=== PATIENT | female | born 1950 | race Caucasian/White ===

== ENCOUNTER 2019-05-23 10:49 | Observation (INO) ==
[2019-05-23] MEDS ORDERED: ACETAMINOPHEN 325 MG TAB PO STA (11:28)
[2019-05-23] MEDS ORDERED: MoRPHine SULFATE 4 MG/ML 1 ML CARP\\VIAL IV STA (11:28)
[2019-05-23] MEDS ORDERED: SODIUM CHLORIDE 0.9% 500 ML IV SCH (11:30)
[2019-05-23 12:15] LABS: Hematocrit (blood only) 31.6 % (37-47); Hemoglobin 10.3 g/dL (12.0-16.0); Mean Corpuscular Hemoglobin 26.7 pg (25-34); Mean Corpuscular Hgb Conc 32.6 g/dL (32-36); Mean Corpuscular Volume 81.9 fL (80-100); Mean Platelet Volume 8.7 fL (7.4-10.4); Platelet Count 423 K/uL (130-400); RDW Coefficient of Variation 16.2 % (11.5-14.5); RDW Standard Deviation 48.6 fL (36.4-46.3); Red Blood Count 3.86 M/uL (4.2-5.4); White Blood Count 25.37 K/uL (4.8-10.8)
[2019-05-23 12:31] LABS: Albumin Level 2.8 gm/dl (3.4-5.0); BUN Creatinine Ratio 18.8 (10-20); Calcium 9.3 mg/dl (8.5-10.1); Creatinine Clr Calc Pharmacy 23.5 ml/min; Est GFR (African American) 23.7; Est GFR (Non-African American) 20.4; Magnesium 2.5 mg/dl (1.8-2.4); Potassium 3.1 mmol/L (3.5-5.1)
--- NOTE | 2019-05-23 12:36 | XRay Report ---
XR hips XANDER 1v w pelvis CLINICAL HISTORY: b/l hip pain, worst on R side COMPARISON: None. DISCUSSION: Nondisplaced cortical fracture right symphysis pubis. Mild degenerative change of the hip s as well as sacroiliac joints. IMPRESSION: Mild degenerative change of the hips as well as sacroiliac joints. Nondisplaced cortical fracture medial right symphysis pubis. ACT 112: Negative or not required by law. The above report was generated using voice recognition software. It may contain grammatical, syntax or spelling errors. Electronically signed by: Javier Chambers M.D. 05/23/2019 12:35 PM
[2019-05-23 12:41] LABS: Albumin Globulin Ratio 0.5 (0.9-2); Bilirubin,Total 0.4 mg/dl (0.2-1); Globulin 5.4 gm/dl (2.5-4.0); Thyroid Stimulating Hormone 0.758 uIu/ml (0.300-4.500); Total Protein 8.2 gm/dl (6.4-8.2)
[2019-05-23] MEDS ORDERED: SODIUM CHLORIDE 0.9% 1000ML 1,000 ML IV ONE (12:53)
[2019-05-23 13:02] LABS: Basophils # (auto) 0.05 K/uL (0-0.2); Basophils % (auto) 0.2 %; Eosinophils # (auto) 0.08 K/uL (0-0.5); Eosinophils % (auto) 0.3 %; Immature Granulocytes # (auto) 0.14 K/uL (0.00-0.02); Immature Granulocytes % (auto) 0.6 %; Lymphocytes # (auto) 7.93 K/uL (1.2-3.4); Lymphocytes % (auto) 31.3 %; Monocytes % (auto) 7.9 %; Neutrophils # (auto) 15.17 K/uL (1.4-6.5); Neutrophils % (auto) 59.7 %; Smudge Cells Present
--- NOTE | 2019-05-23 14:09 | CT Scan Report ---
CT abd pelvis wo con CT DOSE: 1257.30 mGy.cm HISTORY: Pain. Fever. elevated WBC TECHNIQUE: Multiaxial CT images of the abdomen and pelvis were performed without contrast. A dose lo wering technique was utilized adhering to the principles of ALARA. COMPARISON STUDY: None. FINDINGS: Bibasilar atelectasis. Liver spleen and pancreas are unremarkable. 2.5 cm left adrenal lipi d poor adenoma. Kidneys are considered negative for hydronephrosis. Atherosclerotic change abdominal aorta with no evidence for aneurysm. Nonobstructive bowel pattern. Moderate wall thickening with trace amount of pericolonic infiltrative change of the proximal to mid sigmoid. No evidence for abscess or collection. IMPRESSION: 1. Wall thickening and inflammatory change of the proximal to mid sigmoid colon suggesting nonspecifi c colitis. 2. No evidence for abscess collection or obstruction. 3. 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 4. Bibasilar atelectasis. ACT 112: Negative or not required by law. The above report was generated using voice recognition software. It may contain grammatical, syntax or spelling errors. Electronically signed by: Javier Chambers M.D. 05/23/2019 2:08 PM
[2019-05-23 14:51] LABS: Appearance Urine Cloudy (Clear); Bacteria Urine Automated Negative (Negative); Bilirubin Urine Negative (Negative); Blood Urine Negative (Negative); Color Urine Dark Yellow; Epithelial Cell Urine Auto >30 /lpf (0-5); Glucose Urine UA Negative (Negative); Ketones Urine Negative (Negative); Leukocyte Esterase Urine 1+ (Negative); Nitrite Urine Negative (Negative); Protein Urine Negative (Negative); Specific Gravity Urine 1.019 (1.000-1.030); Urobilinogen Urine Negative (Negative)
[2019-05-23 15:07] LABS: RBC Urine Automated 0-4 /hpf (0-4)
[2019-05-23 15:08] LABS: Amorphous Sediment Urine Present (None Prsent); Mucus Urine Present (None Prsent)
--- NOTE | 2019-05-23 15:30 | History & Physical Report ---
Date of Service May 23, 2019 Assessment & Plan (1) Ambulatory dysfunction: 68-year-old female presenting with ambulatory dysfunction, groin pain and weakness. Etiology unclear, patient with a small nondisplaced pubic fracture found on x-ray today which could be contributing to her discomfort. Additionally, patient with multiple electrolyte abnormalities and evidence of acute dehydration which could contribute to overall weakness, possible infection. Admit to medical floor PT/OT evaluation Pain control with Tylenol and tramadol 50 mg p.o. every 4 hours as needed Present on Admission?: Yes (2) GERD (gastroesophageal reflux disease): Chronic. Stable -Continue Nexium Present on Admission?: Yes (3) Hypertension: Blood pressure low, patient appears clinically dry with laboratory evidence of acute dehydration -Hold HCTZ fro now -Continue to monitor BP Present on Admission?: Yes (4) Leukocytosis: WBC=25.37, neutrophils/bands as well as elevated lymphocytes. ?CLL with overlying infection/inflammation -Follow cultures -Follow CBC -Peripheral smear Present on Admission?: Yes (5) CLL (chronic lymphocytic leukemia): Patient reports history of CLL, currently being followed by her PCP, Dr. Tobar. Reports her baseline WBC count is typically 10-16. WBC is elevated today to 25.37, see above. Differential shows neutrophil predominance with some increased immature cells as well as lymphocytes. Smudge cells present as well, expected in CLL.?Infectious/inflammatory response as well as CLL Peripheral smear requested to assess for presence of blasts Records from PCP requested Repeat CBC in a.m. (6) Depression: Chronic. Stable. Continue sertraline 50 mg p.o. daily FENnormal saline at 125 mL/h x 2 L, potassium repletion with 60 mEq p.o. x1 dose, check phosphorus once and replete if needed, regular diet as tolerated Prophylaxisheparin 5000 units subcu 3 times daily Codefull per discussion with patient, family at bedside Dispositionadmission to medical floor Present on Admission?: Yes History of Present Illness Chief Complaint: Ambulatory dysfunction Primary Care Provider: Tyson benson DO Marilyn Gutierrez is a pleasant 5-year-old female with history of CLL and hypertension presenting from home with ambulatory dysfunction. She reports that a couple of weeks ago she was lifting her dog onto the bed and she feels that she may have pulled a muscle in her groin. Since then she has been ambulating with a walker. On 05/19/2019 her pain became more severe. Patient was unable to go to work due to pain and difficulty with ambulation. She required 2 people to get her up off of a chair. She was seen in the ER at [facility] and was given pain medication and Flexeril which she has been taken with minimal improvement in symptoms. Prior to this event, patient was working at a [employer] in [place] and was on her feet 8-10 hours per day without difficulty. She denies fever/chills/chest pain/palpitations/shortness of breath/abdominal pain/nausea/vomiting/diarrhea/constipation. No additional complaints at this time ER course: Tylenol, morphine, normal saline Allergies Allergy/AdvReac Type Severity Reaction Status Date / Time naproxen Allergy Intermediate RASH - Verified 05/23/19 11:43 TOLERATES MOBIC Sulfa (Sulfonamide Allergy Intermediate RASH Verified 05/23/19 11:43 Antibiotics) Home Medications Home Medications Medication Instructions Recorded Confirmed Type enalapril maleate 20 mg PO DAILY 05/23/19 05/23/19 History esomeprazole magnesium 20 mg PO DAILY 05/23/19 05/23/19 History hydrochlorothiazide 25 mg PO DAILY 05/23/19 05/23/19 History sertraline 50 mg PO DAILY 05/23/19 05/23/19 History Past Med/Surg History Medical History (Updated 05/23/19 @ 19:46 by Micaela Mcdonald DO) CLL (chronic lymphocytic leukemia) Depression GERD (gastroesophageal reflux disease) Hypertension Surgical History (Updated 05/23/19 @ 18:50 by Micaela Mcdonald DO) History of cholecystectomy History of hysterectomy History of right knee joint replacement Family History (Updated 05/23/19 @ 18:50 by Micaela Mcdonald DO) Other Cancer Diabetes Heart disease Social History Preferred Language: [place] Communication Ability: Effective Beliefs That Will Affect Care: None Current Living Situation: Spouse Other Information That Helps Us Care for You: No Feels Safe at Home: Yes Safety Concerns: Feels Safe At This Time Smoking Status: Never smoker Hx Alcohol Use: No Hx Substance Use: No Review of Systems Review of Systems: All systems reviewed & are unremarkable except as noted in HPI & below Physical Exam Physical Exam: General: patient resting comfortably, NAD, non-toxic in appearance, AA&O x 4 Skin: warm, dry, intact, no rashes or lesions HEENT: NC/AT, PERRL, EOMI, anicteric sclera, conjunctiva without injection, external ear normal to inspection and nontender, nares patent, dry mucus membranes, dentition intact, no oropharyngeal lesions, neck supple, trachea midline, no LAD, no thyromegaly, no JVD Heart: +S1/S2, regular, no m/r/g Lungs: equal air entry bilaterally, no rales/rhonchi/wheezes Abd: +BS, soft, NT/ND, no masses/organomegaly/ascites Ext: warm, 2+ pulses in UE/LE bilaterally, no clubbing/cyanosis or edema, tenderness with palpation of left knee, no swelling/erythema Neuro: nonfocal, patient AA&O x 4, speech intact, no facial droop, moving all extremities on command with equal strength 5/5 Results & Data Vital Signs (Past 12 Hours) Vital Signs Temp Pulse Pulse Resp BP BP Pulse Ox 05/23/19 14:31 78 14 106/56 L 96 05/23/19 13:30 78 21 90/51 L 94 05/23/19 13:00 79 18 95/50 L 95 05/23/19 12:37 80 14 98/48 L 95 05/23/19 11:35 95 05/23/19 11:16 85 19 95/51 L 96 05/23/19 11:02 37 C 85 20 110/64 99 Laboratory Results Lab Results 05/23/19 05/23/19 05/23/19 Range/Units 12:07 12:07 13:29 WBC 25.37 H (4.8-10.8) K/uL RBC 3.86 L (4.2-5.4) M/uL Hgb 10.3 L (12.0-16.0) g/dL Hct 31.6 L (37-47) % MCV 81.9 (80-100) fL MCH 26.7 (25-34) pg MCHC 32.6 (32-36) g/dL RDW Std Deviation 48.6 H (36.4-46.3) fL RDW Coeff of Payam 16.2 H (11.5-14.5) % Plt Count 423 H (130-400) K/uL MPV 8.7 (7.4-10.4) fL Immature Gran % (Auto) 0.6 % Neut % (Auto) 59.7 % Lymph % (Auto) 31.3 % [place] % (Auto) 7.9 % Eos % (Auto) 0.3 % Baso % (Auto) 0.2 % Immature Gran # (Auto) 0.14 H (0.00-0.02) K/uL Neut # (Auto) 15.17 H (1.4-6.5) K/uL Lymph # (Auto) 7.93 H (1.2-3.4) K/uL [place] # (Auto) 2.00 H (0.11-0.59) K/uL Eos # (Auto) 0.08 (0-0.5) K/uL Baso # (Auto) 0.05 (0-0.2) K/uL Absolute Nucleated RBC 0.00 (0-0) K/uL Nucleated RBC % (auto) 0.0 % Smudge Cells Present Blood Smear Review Cancelled Sodium 131 L (136-145) mmol/L Potassium 3.1 L (3.5-5.1) mmol/L Chloride 97 L (98-107) mmol/L Carbon Dioxide 22 (21-32) mmol/L Anion Gap 12.0 H (3-11) BUN 44 H (7-18) mg/dl Creatinine 2.34 H (0.6-1.2) mg/dl Est Cr Clr Drug Dosing 23.5 ml/min Est GFR ( Amer) 23.7 Est GFR (Non-Af Amer) 20.4 BUN/Creatinine Ratio 18.8 (10-20) Glucose 112 H (70-99) mg/dl Lactate 1.0 (0.4-2.0) mmol/L Calcium 9.3 (8.5-10.1) mg/dl Magnesium 2.5 H (1.8-2.4) mg/dl Total Bilirubin 0.4 (0.2-1) mg/dl AST 26 (15-37) U/L ALT 32 (12-78) U/L Alkaline Phosphatase 124 H (45-117) U/L Total Protein 8.2 (6.4-8.2) gm/dl Albumin 2.8 L (3.4-5.0) gm/dl Globulin 5.4 H (2.5-4.0) gm/dl Albumin/Globulin Ratio 0.5 L (0.9-2) TSH 0.758 (0.300-4.500) uIu/ml Urine Color Urine Appearance (Clear) Urine pH (4.5-7.5) Ur Specific [place] (1.000-1.030) Urine Protein (Negative) Urine Glucose (UA) (Negative) Urine Ketones (Negative) Urine Blood (Negative) Urine Nitrite (Negative) Urine Bilirubin (Negative) Urine Urobilinogen (Negative) Ur Leukocyte Esterase (Negative) Urine WBC (Auto) (0-5) /hpf Urine RBC (Auto) (0-4) /hpf U Hyaline Cast (Auto) (0-5) /lpf U Epithel Cells (Auto) (0-5) /lpf Urine Bacteria (Auto) (Negative) Ur Renal Epithelial Cell (0-5) /lpf Amorphous Sediment (None Prsent) Urine Mucus (None Prsent) Urine Yeast 05/23/19 Range/Units 14:08 WBC (4.8-10.8) K/uL RBC (4.2-5.4) M/uL Hgb (12.0-16.0) g/dL Hct (37-47) % MCV (80-100) fL MCH (25-34) pg MCHC (32-36) g/dL RDW Std Deviation (36.4-46.3) fL RDW Coeff of Payam (11.5-14.5) % Plt Count (130-400) K/uL MPV (7.4-10.4) fL Immature Gran % (Auto) % Neut % (Auto) % Lymph % (Auto) % [place] % (Auto) % Eos % (Auto) % Baso % (Auto) % Immature Gran # (Auto) (0.00-0.02) K/uL Neut # (Auto) (1.4-6.5) K/uL Lymph # (Auto) (1.2-3.4) K/uL [place] # (Auto) (0.11-0.59) K/uL Eos # (Auto) (0-0.5) K/uL Baso # (Auto) (0-0.2) K/uL Absolute Nucleated RBC (0-0) K/uL Nucleated RBC % (auto) % Smudge Cells Blood Smear Review Sodium (136-145) mmol/L Potassium (3.5-5.1) mmol/L Chloride (98-107) mmol/L Carbon Dioxide (21-32) mmol/L Anion Gap (3-11) BUN (7-18) mg/dl Creatinine (0.6-1.2) mg/dl Est Cr Clr Drug Dosing ml/min Est GFR ( Amer) Est GFR (Non-Af Amer) BUN/Creatinine Ratio (10-20) Glucose (70-99) mg/dl Lactate (0.4-2.0) mmol/L Calcium (8.5-10.1) mg/dl Magnesium (1.8-2.4) mg/dl Total Bilirubin (0.2-1) mg/dl AST (15-37) U/L ALT (12-78) U/L Alkaline Phosphatase (45-117) U/L Total Protein (6.4-8.2) gm/dl Albumin (3.4-5.0) gm/dl Globulin (2.5-4.0) gm/dl Albumin/Globulin Ratio (0.9-2) TSH (0.300-4.500) uIu/ml Urine Color Dark Yellow Urine Appearance Cloudy A (Clear) Urine pH 5.0 (4.5-7.5) Ur Specific [place] 1.019 (1.000-1.030) Urine Protein Negative (Negative) Urine Glucose (UA) Negative (Negative) Urine Ketones Negative (Negative) Urine Blood Negative (Negative) Urine Nitrite Negative (Negative) Urine Bilirubin Negative (Negative) Urine Urobilinogen Negative (Negative) Ur Leukocyte Esterase 1+ H (Negative) Urine WBC (Auto) 10-30 H (0-5) /hpf Urine RBC (Auto) 0-4 (0-4) /hpf U Hyaline Cast (Auto) 10-30 H (0-5) /lpf U Epithel Cells (Auto) >30 H (0-5) /lpf Urine Bacteria (Auto) Negative (Negative) Ur Renal Epithelial Cell 10-20 H (0-5) /lpf Amorphous Sediment Present A (None Prsent) Urine Mucus Present A (None Prsent) Urine Yeast Not Reportable Diagnostic Findings XR hips XANDER 1v w pelvis CLINICAL HISTORY: b/l hip pain, worst on R side COMPARISON: None. DISCUSSION: Nondisplaced cortical fracture right symphysis pubis. Mild degenera tive change of the hips as well as sacroiliac joints. IMPRESSION: Mild degenerative change of the hips as well as sacroiliac joints. Nondisplaced cortical fracture medial right symphysis pubis. ACT 112: Negative or not required by law. The above report was generated using voice recognition software. It may contain grammatical, syntax or spelling errors. Electronically signed by: Javier Chambers M.D. 05/23/2019 12:35 PM Dictated: 05/23/19 1234 Transcribed: 05/23/[address] abd pelvis wo con CT DOSE: 1257.30 mGy.cm HISTORY: Pain. Fever. elevated WBC TECHNIQUE: Multiaxial CT images of the abdomen and pelvis were performed without contrast. A dose lowering technique was utilized adhering to the principles of ALARA. COMPARISON STUDY: None. FINDINGS: Bibasilar atelectasis. Liver spleen and pancreas are unremarkable. 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 Kidneys are considered negative for hydronephrosis. Atherosclerotic change abdominal aorta with no evidence for aneurysm. Nonobstructive bowel pattern. Moderate wall thickening with trace amount of pericolonic infiltrative change of the proximal to mid sigmoid. No evidence for abscess or collection. IMPRESSION: 1. Wall thickening and inflammatory change of the proximal to mid sigmoid colon suggesting nonspecific colitis. 2. No evidence for abscess collection or obstruction. 3. 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 4. Bibasilar atelectasis. ACT 112: Negative or not required by law. The above report was generated using voice recognition software. It may contain grammatical, syntax or spelling errors. Electronically signed by: Javier Chambers M.D. 05/23/2019 2:08 PM Dictated: 05/23/19 1400 Transcribed: 05/23/19 1400 ECG Additional Comments: DICTATED BY: Jake Romreo MD Test Reason : Blood Pressure : / mmHG Vent. Rate : 083 BPM Atrial Rate : 083 BPM P-R Int : 156 ms QRS Dur : 096 ms QT Int : 372 ms P-R-T Axes : -12 -20 039 degrees QTc Int : 437 ms Normal sinus rhythm Voltage criteria for left ventricular hypertrophy Abnormal ECG When compared with ECG of 11-OCT-2010 15:22, No significant change was found Confirmed by Jake Romero ([id number]) on 05/23/2019 4:53:22 PM Code Status & VTE Plan Code Status Full code VTE Prophylaxis Plan VTE Prophylaxis will be ordered: Yes PG Care Time/CCT Total # of Minutes Spent Total Time Spent with Patient: Total time spent is greater than 50% in human service coordinator rdination of care (as documented) at patient's floor/unit and/or counseling patient: Coding Level of Care Code 93306 Initial Inpt Care Lvl 3 Diagnoses Ambulatory dysfunction R26.2 GERD (gastroesophageal reflux disease) K21.9 Esophagitis presence: esophagitis presence not specified Hypertension I10 Hypertension type: essential hypertension Leukocytosis D72.829 Leukocytosis type: unspecified CLL (chronic lymphocytic leukemia) C91.10 Depression F33.9 Active/Remission status: remission status unspecified Depression Type: major depressive disorder Major depression recurrence: recurrent (1) Depression Active/Remission status: remission status unspecified Depression Type: major depressive disorder Major depression recurrence: recurrent Qualified Code(s): F33.9 - Major depressive disorder, recurrent, unspecified (2) Leukocytosis Leukocytosis type: unspecified Qualified Code(s): D72.829 - Elevated white blood cell count, unspecified (3) GERD (gastroesophageal reflux disease) Esophagitis presence: esophagitis presence not specified Qualified Code(s): K21.9 - Gastro-esophageal reflux disease without esophagitis (4) Hypertension Hypertension type: essential hypertension Qualified Code(s): I10 - Essential (primary) hypertension
[2019-05-23] MEDS ORDERED: INFLUENZA ADMINISTRATION CHARGE ONE (15:58)
[2019-05-23] MEDS ORDERED: INFLUENZA VACCINE HIGH DOSE 65+ 0.5 ML SYR IM ONE (15:58)
--- NOTE | 2019-05-23 16:03 | Emergency Department Note ---
Entered by Cami Perez acting as a scribe for Tung Fleming MD History of Present Illness General Chief complaint: Leg Injury/Pain Stated complaint: RT KNEE TEAR?, UNABLE TO WALK ON EITHER LEG Time Seen by Provider: 05/23/19 11:06 Source: patient Mode of arrival: wheelchair Limitations: no limitations History of Present Illness Onset (ago): week(s) 4 Location: pelvis (groin) Radiation: non-radiation Pain Consistency: + constant Maximum Pain Intensity: 8 Current Pain Intensity: 8 Relieved By: + medication (muscle relaxants, pain medication) Exacerbated By: + movement Associated symptoms: no chest pain, no fever/chills, no nausea/vomiting and no shortness of breath Treatments prior to arrival: other (pain medication and muscle relaxants) The patient is a 68 year old white female w/ PMHx of popliteal cyst who presents to the ED w/ CC of worsening groin pain for the past 3 to 4 weeks. She was seen at [facility] a few days ago, and was discharged on pain medication and muscle relaxants. They have provided no relief. The right side is more painful than the left. She is unable to walk. Getting up to use the bathroom took 30 minutes this morning. She denies any recent fevers, chills, nausea, vomiting, chest pain or shortness of breath. Home Medications Home Medications Medication Instructions Recorded Confirmed Type enalapril maleate 20 mg PO DAILY 05/23/19 05/23/19 History esomeprazole magnesium 20 mg PO DAILY 05/23/19 05/23/19 History hydrochlorothiazide 25 mg PO DAILY 05/23/19 05/23/19 History sertraline 50 mg PO DAILY 05/23/19 05/23/19 History Allergies Allergy/AdvReac Type Severity Reaction Status Date / Time naproxen Allergy Intermediate RASH - Verified 05/23/19 11:43 TOLERATES MOBIC Sulfa (Sulfonamide Allergy Intermediate RASH Verified 05/23/19 11:43 Antibiotics) Past Med/Surg History Social History Preferred Language: Welsh Communication Ability: Effective Beliefs That Will Affect Care: None Current Living Situation: Spouse Other Information That Helps Us Care for You: No Feels Safe at Home: Yes Safety Concerns: Feels Safe At This Time Smoking Status: Never smoker Hx Alcohol Use: No Hx Substance Use: No Review of Systems See HPI for pertinent positives & negatives. and A total of 10 systems reviewed and were otherwise negative Physical Exam Vital Signs Vital Signs - 24 hr 05/23/19 11:02 05/23/19 11:16 05/23/19 11:35 Temperature 37 C Temperature Source Oral Pulse Rate 85 Pulse Rate [Apical] 85 Pulse Rate from SpO2 Sensor Pulse Rhythm Regular Pulse Strength Normal Respiratory Rate 20 19 Respiratory Effort / Characteristics Non-Labored Spontaneous Respiratory Depth Normal Respiratory Pattern Regular Blood Pressure 110/64 Blood Pressure [Right Arm] 95/51 L Blood Pressure Mean 79 Blood Pressure Mean [Right Arm] 65 Pulse Oximetry 99 96 95 Oxygen Delivery Method Room Air Room Air Room Air Sepsis Recent Fever Within 48 Hours No Sepsis Action Taken by Nursing No Action Required 05/23/19 12:37 05/23/19 13:00 05/23/19 13:30 Temperature Temperature Source Pulse Rate 79 78 Pulse Rate [Apical] 80 Pulse Rate from SpO2 Sensor 80 78 Pulse Rhythm Pulse Strength Respiratory Rate 14 18 21 Respiratory Effort / Characteristics Respiratory Depth Respiratory Pattern Blood Pressure 95/50 L 90/51 L Blood Pressure [Right Arm] 98/48 L Blood Pressure Mean 72 61 Blood Pressure Mean [Right Arm] 64 Pulse Oximetry 95 95 94 Oxygen Delivery Method Room Air Room Air Room Air Sepsis Recent Fever Within 48 Hours Sepsis Action Taken by Nursing 05/23/19 14:31 05/23/19 14:32 05/23/19 15:00 Temperature Temperature Source Pulse Rate 78 77 78 Pulse Rate [Apical] Pulse Rate from SpO2 Sensor 78 77 82 Pulse Rhythm Pulse Strength Respiratory Rate 14 17 15 Respiratory Effort / Characteristics Respiratory Depth Respiratory Pattern Blood Pressure 106/56 L Blood Pressure [Right Arm] Blood Pressure Mean 94 Blood Pressure Mean [Right Arm] Pulse Oximetry 96 96 97 Oxygen Delivery Method Room Air Room Air Room Air Sepsis Recent Fever Within 48 Hours Sepsis Action Taken by Nursing 05/23/19 15:30 05/23/19 15:33 Temperature Temperature Source Pulse Rate 79 81 Pulse Rate [Apical] Pulse Rate from SpO2 Sensor 81 Pulse Rhythm Pulse Strength Respiratory Rate 14 19 Respiratory Effort / Characteristics Respiratory Depth Respiratory Pattern Blood Pressure 84/46 L Blood Pressure [Right Arm] Blood Pressure Mean 65 Blood Pressure Mean [Right Arm] Pulse Oximetry 97 Oxygen Delivery Method Sepsis Recent Fever Within 48 Hours Sepsis Action Taken by Nursing GENERAL: Patient is wearing glasses, well nourished, NAD, non-toxic. EYE EXAM: Normal conjunctiva. PERRL, no anisocoria and EOM's grossly intact w/o pain. OROPHARYNX: Moist mucous membranes. Grossly normal dentition. NECK: Supple, no nuchal rigidity, no adenopathy, non-tender. No signs of meningismus. LUNGS: Clear to auscultation. Normal chest wall mechanics. HEART: NSR, no MRG. ABDOMEN: Abdomen soft, non-tender, normo-active bowel sounds, no masses, no rebound or guarding. : No inguinal rash, no swelling or bruising, no skin changes, compartments soft, without crepitus. BACK: No CVA TTP. SKIN: No rashes and no bruising. UPPER EXTREMITIES: Upper extremities are grossly normal. LOWER EXTREMITIES: No pitting edema. No calf pain. Decreased strength bilaterally, no sensory deficits. NEURO EXAM: A&O x3, cranial nerves II-XII grossly intact, normal speech, moves all 4 extremities on command w/o issue. Course Course 1120: The patient was evaluated in room B9 and a complete history and physical were performed. 1305: I reevaluated the patient. She is resting comfortably. 1505: I reevaluated the patient. She is resting. I discussed her results and my recommendation she remain in the hospital for further evaluation and management and she is agreeable with the plan. 1515: I discussed the patients case with Dr. Mcdonald, [facility] Hospitalist. The patient will be further evaluated. Administered Medications Discontinued Medications Acetaminophen (Tylenol) 650 mg PO NOW STA Stop: 05/23/19 11:29 Last Admin: 05/23/19 12:11 Dose: 650 mg Documented by: [id number] Sodium Chloride (Nss) 500 mls @ 999 mls/hr IV .Q31M XENIA Stop: 05/23/19 12:00 Last Infusion: 05/23/19 12:20 Dose: 0 mls/hr Documented by: [id number] Admin: 05/23/19 11:49 Dose: 999 mls/hr Documented by: [id number] Sodium Chloride (Nss 1000ml) 1,000 mls @ 999 mls/hr IV .Q1H1M ONE Stop: 05/23/19 13:53 Last Infusion: 05/23/19 14:34 Dose: 0 mls/hr Documented by: [id number] Admin: 05/23/19 13:33 Dose: 999 mls/hr Documented by: [id number] Morphine Sulfate (Morphine Sulfate) 4 mg IV NOW STA Stop: 05/23/19 11:29 Last Admin: 05/23/19 11:50 Dose: 4 mg Documented by: [id number] Medical Decision Making Medical Records Attestation: I reviewed the patient's medical records. Home Medications Current Medication List: was personally reviewed by nj Laboratory Data Attestation: I reviewed the patient's lab results. Result diagrams: 05/23/19 12:07 05/23/19 12:07 Lab Results 05/23/19 05/23/19 05/23/19 Range/Units 12:07 12:07 13:29 WBC 25.37 H (4.8-10.8) K/uL RBC 3.86 L (4.2-5.4) M/uL Hgb 10.3 L (12.0-16.0) g/dL Hct 31.6 L (37-47) % MCV 81.9 (80-100) fL MCH 26.7 (25-34) pg MCHC 32.6 (32-36) g/dL RDW Std Deviation 48.6 H (36.4-46.3) fL RDW Coeff of [place] 16.2 H (11.5-14.5) % Plt Count 423 H (130-400) K/uL MPV 8.7 (7.4-10.4) fL Immature Gran % (Auto) 0.6 % Neut % (Auto) 59.7 % Lymph % (Auto) 31.3 % [place] % (Auto) 7.9 % Eos % (Auto) 0.3 % Baso % (Auto) 0.2 % Immature Gran # (Auto) 0.14 H (0.00-0.02) K/uL Neut # (Auto) 15.17 H (1.4-6.5) K/uL Lymph # (Auto) 7.93 H (1.2-3.4) K/uL [place] # (Auto) 2.00 H (0.11-0.59) K/uL Eos # (Auto) 0.08 (0-0.5) K/uL Baso # (Auto) 0.05 (0-0.2) K/uL Smudge Cells Present Sodium 131 L (136-145) mmol/L Potassium 3.1 L (3.5-5.1) mmol/L Chloride 97 L (98-107) mmol/L Carbon Dioxide 22 (21-32) mmol/L Anion Gap 12.0 H (3-11) BUN 44 H (7-18) mg/dl Creatinine 2.34 H (0.6-1.2) mg/dl Est Cr Clr Drug Dosing 23.5 ml/min Est GFR ( Amer) 23.7 Est GFR (Non-Af Amer) 20.4 BUN/Creatinine Ratio 18.8 (10-20) Glucose 112 H (70-99) mg/dl Lactate 1.0 (0.4-2.0) mmol/L Calcium 9.3 (8.5-10.1) mg/dl Magnesium 2.5 H (1.8-2.4) mg/dl Total Bilirubin 0.4 (0.2-1) mg/dl AST 26 (15-37) U/L ALT 32 (12-78) U/L Alkaline Phosphatase 124 H (45-117) U/L Total Protein 8.2 (6.4-8.2) gm/dl Albumin 2.8 L (3.4-5.0) gm/dl Globulin 5.4 H (2.5-4.0) gm/dl Albumin/Globulin Ratio 0.5 L (0.9-2) TSH 0.758 (0.300-4.500) uIu/ml Urine Color Urine Appearance (Clear) Urine pH (4.5-7.5) Ur Specific [place] (1.000-1.030) Urine Protein (Negative) Urine Glucose (UA) (Negative) Urine Ketones (Negative) Urine Blood (Negative) Urine Nitrite (Negative) Urine Bilirubin (Negative) Urine Urobilinogen (Negative) Ur Leukocyte Esterase (Negative) Urine WBC (Auto) (0-5) /hpf Urine RBC (Auto) (0-4) /hpf U Hyaline Cast (Auto) (0-5) /lpf U Epithel Cells (Auto) (0-5) /lpf Urine Bacteria (Auto) (Negative) Ur Renal Epithelial Cell (0-5) /lpf Amorphous Sediment (None Prsent) Urine Mucus (None Prsent) Urine Yeast 05/23/19 Range/Units 14:08 WBC (4.8-10.8) K/uL RBC (4.2-5.4) M/uL Hgb (12.0-16.0) g/dL Hct (37-47) % MCV (80-100) fL MCH (25-34) pg MCHC (32-36) g/dL RDW Std Deviation (36.4-46.3) fL RDW Coeff of Payam (11.5-14.5) % Plt Count (130-400) K/uL MPV (7.4-10.4) fL Immature Gran % (Auto) % Neut % (Auto) % Lymph % (Auto) % [place] % (Auto) % Eos % (Auto) % Baso % (Auto) % Immature Gran # (Auto) (0.00-0.02) K/uL Neut # (Auto) (1.4-6.5) K/uL Lymph # (Auto) (1.2-3.4) K/uL [place] # (Auto) (0.11-0.59) K/uL Eos # (Auto) (0-0.5) K/uL Baso # (Auto) (0-0.2) K/uL Smudge Cells Sodium (136-145) mmol/L Potassium (3.5-5.1) mmol/L Chloride (98-107) mmol/L Carbon Dioxide (21-32) mmol/L Anion Gap (3-11) BUN (7-18) mg/dl Creatinine (0.6-1.2) mg/dl Est Cr Clr Drug Dosing ml/min Est GFR ( Amer) Est GFR (Non-Af Amer) BUN/Creatinine Ratio (10-20) Glucose (70-99) mg/dl Lactate (0.4-2.0) mmol/L Calcium (8.5-10.1) mg/dl Magnesium (1.8-2.4) mg/dl Total Bilirubin (0.2-1) mg/dl AST (15-37) U/L ALT (12-78) U/L Alkaline Phosphatase (45-117) U/L Total Protein (6.4-8.2) gm/dl Albumin (3.4-5.0) gm/dl Globulin (2.5-4.0) gm/dl Albumin/Globulin Ratio (0.9-2) TSH (0.300-4.500) uIu/ml Urine Color Dark Yellow Urine Appearance Cloudy A (Clear) Urine pH 5.0 (4.5-7.5) Ur Specific [place] 1.019 (1.000-1.030) Urine Protein Negative (Negative) Urine Glucose (UA) Negative (Negative) Urine Ketones Negative (Negative) Urine Blood Negative (Negative) Urine Nitrite Negative (Negative) Urine Bilirubin Negative (Negative) Urine Urobilinogen Negative (Negative) Ur Leukocyte Esterase 1+ H (Negative) Urine WBC (Auto) 10-30 H (0-5) /hpf Urine RBC (Auto) 0-4 (0-4) /hpf U Hyaline Cast (Auto) 10-30 H (0-5) /lpf U Epithel Cells (Auto) >30 H (0-5) /lpf Urine Bacteria (Auto) Negative (Negative) Ur Renal Epithelial Cell 10-20 H (0-5) /lpf Amorphous Sediment Present A (None Prsent) Urine Mucus Present A (None Prsent) Urine Yeast Not Reportable Imaging Data Radiologist's Impression: Radiology results as stated below per my review and the radiologist's interpretation: XR hips XANDER 1v w pelvis CLINICAL HISTORY: b/l hip pain, worst on R side COMPARISON: None. DISCUSSION: Nondisplaced cortical fracture right symphysis pubis. Mild degenerative change of the hips as well as sacroiliac joints. IMPRESSION: Mild degenerative change of the hips as well as sacroiliac joints. Nondisplaced cortical fracture medial right symphysis pubis. ACT 112: Negative or not required by law. The above report was generated using voice recognition software. It may contain grammatical, syntax or spelling errors. Electronically signed by: Javier Chambers M.D. 05/23/2019 12:[address] abd pelvis wo con CT DOSE: 1257.30 mGy.cm HISTORY: Pain. Fever. elevated WBC TECHNIQUE: Multiaxial CT images of the abdomen and pelvis were performed without contrast. A dose lowering technique was utilized adhering to the principles of ALARA. COMPARISON STUDY: None. FINDINGS: Bibasilar atelectasis. Liver spleen and pancreas are unremarkable. 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 Kidneys are considered negative for hydronephrosis. Atherosclerotic change abdominal aorta with no evidence for aneurysm. Nonobstructive bowel pattern. Moderate wall thickening with trace amount of pericolonic infiltrative change of the proximal to mid sigmoid. No evidence for abscess or collection. IMPRESSION: 1. Wall thickening and inflammatory change of the proximal to mid sigmoid colon suggesting nonspecific colitis. 2. No evidence for abscess collection or obstruction. 3. 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 4. Bibasilar atelectasis. ACT 112: Negative or not required by law. The above report was generated using voice recognition software. It may contain grammatical, syntax or spelling errors. Electronically signed by: Javier Chambers M.D. 05/23/2019 2:08 PM ECG Data Attestation: I personally reviewed and interpreted this ECG as follows: Indication: + other (groin pain) Rate (beats per minute): 83 Rhythm: + normal sinus ECG [place]: + Normal ECG Findings: + Other (Normal intervals, no STS changes) Blood Pressure Blood Pressure Findings: Low blood pressure MDM Narrative The patient is a 68 year old white female w/ PMHx of popliteal cyst who presents to the ED w/ CC of worsening groin pain for the past 3 to 4 weeks. Differential Diagnosis includes but is not limited to dehydration, stroke, anemia, hypoglycemia, hyponatremia, hypernatremia, urinary tract infection, pneumonia, bronchitis, sepsis, gastroenteritis, additional abdominal pathology, metabolic abnormalities and infections. Patient was seen and evaluated the bedside. The patient was presented with worsening right groin pain bilateral hip pain and leg weakness. The patient was recently seen at [facility] and apparently had a negative work-up and was discharged on pain medication and muscle relaxants. The patient states she has tried these and has only received minimal relief. The patient does have some bilateral weakness but no back pain. I believe this is more related to deconditioning as the patient has no sensory deficits. Patient did a blood work completed. Patient was deemed medically cleared was deemed by the director case to require observation for possible rehab placement after PT and OT which will be done tomorrow. The patient does have a nondisplaced pubic symphysis fracture. The patient does have an elevated white counts blood cultures were obtained with the patient does have a known history of CLL. Given the patient's persistent weakness and issues patient was admitted to the medicine service. Impression & Plan Weakness, Groin pain, Leukocytosis, Closed fracture of symphysis pubis Discharge Plan Visit Data Chief Complaint: Leg Injury/Pain Stated Complaint: RT KNEE TEAR?, UNABLE TO WALK ON EITHER LEG ED Provider: Tung Fleming Discharge Problem: Weakness, Groin pain, Leukocytosis, Closed fracture of symphysis pubis Patient Disposition: Being Evaluated by Hospitalist Forms Stand Alone Forms: My [facility] Prescriptions Prescriptions: No Action enalapril maleate 20 mg tablet 20 mg PO DAILY RF: 0 hydrochlorothiazide 25 mg tablet 25 mg PO DAILY RF: 0 sertraline 50 mg tablet 50 mg PO DAILY RF: 0 esomeprazole magnesium 20 mg capsule,delayed release(DR/EC) 20 mg PO DAILY RF: 0 Referrals Referrals: Tyson Tobar DO [Primary Care Provider] - The scribe's documentation has been prepared under my direction and personally reviewed by me in its entirety. I confirm that the note above accurately re flects all work, treatment, procedures, and medical decision making performed by me.
--- NOTE | 2019-05-23 16:53 | Electrocardiogram Report ---
Test Reason : Blood Pressure : / mmHG Vent. Rate : 083 BPM Atrial Rate : 083 BPM P-R Int : 156 ms QRS Dur : 096 ms QT Int : 372 ms P-R-T Axes : -12 -20 039 degrees QTc Int : 437 ms Normal sinus rhythm Voltage criteria for left ventricular hypertrophy Abnormal ECG When compared with ECG of 11-OCT-2010 15:22, No significant change was found Confirmed by Jake Romero ([id number]) on 05/23/2019 4:53:22 PM Referred By: REFERRED SELF Confirmed By:Pradeep Romero
[2019-05-23] MEDS ORDERED: ONDANSETRON INJ 2 MG/ML 2 ML VIAL IV PRN (17:25)
[2019-05-23] MEDS ORDERED: POTASSIUM CHLORIDE 20 MEQ TABCR PO STA (17:25)
[2019-05-23] MEDS: SODIUM CHLORIDE 0.9% 1000ML 1,000 ML IV SCH ×2 (17:32→23:18)
[2019-05-23] MEDS: TRAMADOL HCL 50 MG TABLET PO PRN ×2 (17:39→21:41)
[2019-05-23] MEDS: ACETAMINOPHEN 325 MG TAB PO PRN ×2 (18:48→23:17)
[2019-05-23] MEDS: HEPARIN SOD 5,000 UNIT/0.5 ML VIAL SQ SCH (21:12)
[2019-05-24] MEDS: TRAMADOL HCL 50 MG TABLET PO PRN ×4 (02:46→22:16)
[2019-05-24 05:27] LABS: Hematocrit (blood only) 27.8 % (37-47); Mean Corpuscular Hemoglobin 26.2 pg (25-34); Mean Corpuscular Hgb Conc 32.4 g/dL (32-36); Mean Corpuscular Volume 80.8 fL (80-100); Mean Platelet Volume 8.9 fL (7.4-10.4); Platelet Count 386 K/uL (130-400); RDW Coefficient of Variation 16.1 % (11.5-14.5); RDW Standard Deviation 47.7 fL (36.4-46.3); Red Blood Count 3.44 M/uL (4.2-5.4); White Blood Count 16.53 K/uL (4.8-10.8)
[2019-05-24] MEDS: HEPARIN SOD 5,000 UNIT/0.5 ML VIAL SQ SCH ×3 (05:45→21:05)
[2019-05-24] MEDS: ACETAMINOPHEN 325 MG TAB PO PRN ×3 (05:48→22:17)
[2019-05-24 06:13] LABS: Albumin Level 2.2 gm/dl (3.4-5.0); BUN Creatinine Ratio 23.1 (10-20); Bilirubin Direct 0.1 mg/dl (0-0.2); Bilirubin,Total 0.6 mg/dl (0.2-1); Calcium 8.4 mg/dl (8.5-10.1); Creatinine Clr Calc Pharmacy 30.4 ml/min; Est GFR (African American) 32.3; Est GFR (Non-African American) 27.8; Potassium 3.7 mmol/L (3.5-5.1); Total Protein 6.7 gm/dl (6.4-8.2)
[2019-05-24 06:35] LABS: Basophils # (auto) 0.06 K/uL (0-0.2); Basophils % (auto) 0.4 %; Eosinophils # (auto) 0.36 K/uL (0-0.5); Eosinophils % (auto) 2.2 %; Immature Granulocytes # (auto) 0.09 K/uL (0.00-0.02); Immature Granulocytes % (auto) 0.5 %; Lymphocytes # (auto) 6.46 K/uL (1.2-3.4); Lymphocytes % (auto) 39.1 %; Monocytes # (auto) 0.83 K/uL (0.11-0.59); Neutrophils # (auto) 8.73 K/uL (1.4-6.5); Neutrophils % (auto) 52.8 %
[2019-05-24] MEDS: SERTRALINE HCL 50 MG TABLET PO SCH (08:37)
[2019-05-24] MEDS: PANTOprazole 40 MG TAB PO SCH (08:37)
--- NOTE | 2019-05-24 11:00 | Hospitalist Progress Note ---
Date of Service May 24, 2019 Assessment & Plan (1) Ambulatory dysfunction: 68-year-old female presenting with ambulatory dysfunction, groin pain and weakness. Etiology unclear, patient with a small nondisplaced medial right symphysis pubis fracture on x-ray which could be contributing to her discomfort. Additionally, patient with multiple electrolyte abnormalities (resolved) and evidence of acute dehydration, which could contribute to overall weakness, possible infection. * PT/OT evaluation and treat -- please continue to see while inpatient --> recommendations for inpatient rehab at discharge * Pain control with tylenol and tramadol 50mg Q4 prn * TSH wnl at 0.758 * Continue IVF for dehydration -- NSS @ 125ml/hr -- UA with possible ATN * Although patient denies any abdominal symptoms, she does motion to LLQ CT A/P with possible nonspecific colitis of proximal/mid sigmoid colon --> will initiate IV Cipro/Flagyl (2) JOSH (acute kidney injury): * Cr elevated to 2.34 on admission. Unclear baseline. Likely in setting of acute dehydration. * Cr improved to 1.81 * UA with 1+ leuk est, 10-30WBC, 10-30 hyaline cast, >30 epi, 10-20 renal epithelial cells, +amorphous sediment. Urine culture with pin-point growth, reincubating * Likely ATN --> continue IVF, avoid nephrotoxic agents/renally dose when available * Urine studies ordered * Monitor BMP in AM (3) GERD (gastroesophageal reflux disease): * Chronic. Stable * Home omeprazole on hold (non-formulary) -- patient on protonix while inpatient * Monitor for symptoms (4) Hypertension: * BPs borderline low, HCTZ, enalapril on hold secondary to acute dehydration * BP improved -- currently 139/83 * Continue to monitor (5) Leukocytosis: * WBC=25.37k on admission, neutrophils/bands as well as elevated lymphocytes. ?CLL with overlying infection/inflammation * WBC 16.5k currently -- per patient, this is around her baseline (10-16k) -- follows with PCP Dr. Tyson Junior in [place] * BCx prelim NGTD * Peripheral smear (6) CLL (chronic lymphocytic leukemia): * Patient reports history of CLL, currently being followed by her PCP, Dr. Tobar. Reports her baseline WBC count is typically 10-16. WBC is elevated 25.37 on admission, see above. Differential shows neutrophil predominance with some increased immature cells as well as lymphocytes. Smudge cells present as well, expected in CLL.?Infectious/inflammatory response as well as CLL. Given elevation and findings on CT A/p as above -- initiated on cip ro/flagyl * Peripheral smear requested --> no blasts identified * HIM to obtain PCP outpatient records * Continue to monitor (7) Depression: * Chronic. Stable. * Continue sertraline 50 mg p.o. daily (8) Microcytosis: * MCV borderline at 80.8 * Iron studies pending (9) Anemia: * H/h 9.0/27.8 -- 10.3/31.6 on admission -- likely some dilutional effect given IVF, however patient appears to be closer to 14 at baseline after review of records. Low H/h in 2010 following R TKA by Dr. Ambrocio. * Believes last colonoscopy >12 years ago. * Hemoccult ordered * Monitor CBC in AM -- possible GI consult (10) Hypokalemia: * K 3.1 on admission -- given 60meq x 1 * K improved to 3.7 * Continue to monitor (11) Hyponatremia: * Na 131 on admission. IVF as above * Na stable at 136 * Continue to monitor (12) DVT prophylaxis: * Heparin SQ Dispo: possible GI consultation in AM pending iron studies, hemoccult (13) Colitis: Admission and Anticipated Discharge Date Admission Date: May 23, 2019 Supervising Physician Co-Signing Physician Notes PA Supervision Note: I did not personally see or examine the patient today, but I verified all ravi points of DAIN Avery's assessment and plan with the following exceptions/additions: None Subjective Patient states she feels slightly better today, which is the first day in the past two weeks. She notices and increase in urinary frequency but denies any burning or hematuria. She states she believes her urine is darker colored, but admits she has been using the bedpan and it is hard to determine what it looks like. Believes previous colonoscopy approx 12 years ago. She still has some groin pain, primarily left sided with left knee pain, but it is described as a deep, aching type of pain that is not reproducible on palpation. She states she had been utilizing pain medication and muscle relaxers and had not had any improvement of her symptoms. She has been using a walker for the past two weeks in order to get around. She states she had been working at [employer] and inciting incident she believes was two weeks ago while helping get her dog get into bed. Denies fever, chills, chest pain, shortness of breath, abdominal pain (outside of some LLQ/groin pain), n/v/d/c, melena, hematochezia, or unintentional weight loss. Review of Systems Review of Systems: All systems reviewed & are unremarkable except as noted in HPI & below Physical Exam Constitutional: WD/WN, vitals as above + obese; no acute distress Eyes: + anicteric sclerae and PERRL ENMT: dry mm Neck: trachea midline, no thyromegaly Respiratory: normal respiratory effort, lungs clear to auscultation Cardiovascular: RRR, no murmur, no edema Gastrointestinal (Abdomen): normal bowel sounds, soft, nontender, no hepatosplenomegaly Musculoskeletal: no cyanosis or clubbing, extremities motor strength 5/5 Skin: no rashes, warm and dry Neurologic: PERRL, EOMI, accommodation nl, no face palsy, no dysarthria Psychiatric: A+Ox3, euthymic affect Lymphatic: no cervical or axillary lymphadenopathy Results & Data ([facility]) Vital Signs (Past 12 Hours) Vital Signs Temp Pulse Pulse Resp BP Pulse Ox 05/24/19 08:02 36.7 C 72 18 102/60 90 05/24/19 05:52 113/72 05/23/19 23:09 37.0 C 77 14 101/64 94 Laboratory Results 05/24/19 05/24/19 05/24/19 Range/Units 05:08 05:08 05:08 WBC 16.53 H (4.8-10.8) K/uL RBC 3.44 L (4.2-5.4) M/uL Hgb 9.0 L (12.0-16.0) g/dL Hct 27.8 L (37-47) % MCV 80.8 (80-100) fL MCH 26.2 (25-34) pg MCHC 32.4 (32-36) g/dL RDW Std Deviation 47.7 H (36.4-46.3) fL RDW Coeff of Payam 16.1 H (11.5-14.5) % Plt Count 386 (130-400) K/uL MPV 8.9 (7.4-10.4) fL Immature Gran % (Auto) 0.5 % Neut % (Auto) 52.8 % Lymph % (Auto) 39.1 % Dixie % (Auto) 5.0 % Eos % (Auto) 2.2 % Baso % (Auto) 0.4 % Immature Gran # (Auto) 0.09 H (0.00-0.02) K/uL Neut # (Auto) 8.73 H (1.4-6.5) K/uL Lymph # (Auto) 6.46 H (1.2-3.4) K/uL Dixie # (Auto) 0.83 H (0.11-0.59) K/uL Eos # (Auto) 0.36 (0-0.5) K/uL Baso # (Auto) 0.06 (0-0.2) K/uL Absolute Nucleated RBC (0-0) K/uL Nucleated RBC % (auto) % Smudge Cells Blood Smear Review Peripher Smr Path Cons Sodium 136 (136-145) mmol/L Potassium 3.7 D (3.5-5.1) mmol/L Chloride 107 (98-107) mmol/L Carbon Dioxide 22 (21-32) mmol/L Anion Gap 7.0 (3-11) BUN 42 H (7-18) mg/dl Creatinine 1.81 H D (0.6-1.2) mg/dl Est Cr Clr Drug Dosing 30.4 ml/min Est GFR ( Amer) 32.3 Est GFR (Non-Af Amer) 27.8 BUN/Creatinine Ratio 23.1 H (10-20) Glucose 88 (70-99) mg/dl Lactate (0.4-2.0) mmol/L Calcium 8.4 L (8.5-10.1) mg/dl Magnesium (1.8-2.4) mg/dl Total Bilirubin 0.6 (0.2-1) mg/dl Direct Bilirubin 0.1 (0-0.2) mg/dl AST 50 H (15-37) U/L ALT 50 (12-78) U/L Alkaline Phosphatase 166 H (45-117) U/L Total Protein 6.7 (6.4-8.2) gm/dl Albumin 2.2 L (3.4-5.0) gm/dl Globulin (2.5-4.0) gm/dl Albumin/Globulin Ratio (0.9-2) TSH (0.300-4.500) uIu/ml Urine Color Urine Appearance (Clear) Urine pH (4.5-7.5) Ur Specific [place] (1.000-1.030) Urine Protein (Negative) Urine Glucose (UA) (Negative) Urine Ketones (Negative) Urine Blood (Negative) Urine Nitrite (Negative) Urine Bilirubin (Negative) Urine Urobilinogen (Negative) Ur Leukocyte Esterase (Negative) Urine WBC (Auto) (0-5) /hpf Urine RBC (Auto) (0-4) /hpf U Hyaline Cast (Auto) (0-5) /lpf U Epithel Cells (Auto) (0-5) /lpf Urine Bacteria (Auto) (Negative) Ur Renal Epithelial Cell (0-5) /lpf Amorphous Sediment (None Prsent) Urine Mucus (None Prsent) Urine Yeast Hepatitis C Ab Screen Neg (Neg) 05/23/19 05/23/19 05/23/19 Range/Units 14:08 13:29 12:07 WBC 25.37 H (4.8-10.8) K/uL RBC 3.86 L (4.2-5.4) M/uL Hgb 10.3 L (12.0-16.0) g/dL Hct 31.6 L (37-47) % MCV 81.9 (80-100) fL MCH 26.7 (25-34) pg MCHC 32.6 (32-36) g/dL RDW Std Deviation 48.6 H (36.4-46.3) fL RDW Coeff of Payam 16.2 H (11.5-14.5) % Plt Count 423 H (130-400) K/uL MPV 8.7 (7.4-10.4) fL Immature Gran % (Auto) 0.6 % Neut % (Auto) 59.7 % Lymph % (Auto) 31.3 % Dixie % (Auto) 7.9 % Eos % (Auto) 0.3 % Baso % (Auto) 0.2 % Immature Gran # (Auto) 0.14 H (0.00-0.02) K/uL Neut # (Auto) 15.17 H (1.4-6.5) K/uL Lymph # (Auto) 7.93 H (1.2-3.4) K/uL Dixie # (Auto) 2.00 H (0.11-0.59) K/uL Eos # (Auto) 0.08 (0-0.5) K/uL Baso # (Auto) 0.05 (0-0.2) K/uL Absolute Nucleated RBC 0.00 (0-0) K/uL Nucleated RBC % (auto) 0.0 % Smudge Cells Present Blood Smear Review Cancelled Peripher Smr Path Cons Sodium (136-145) mmol/L Potassium (3.5-5.1) mmol/L Chloride (98-107) mmol/L Carbon Dioxide (21-32) mmol/L Anion Gap (3-11) BUN (7-18) mg/dl Creatinine (0.6-1.2) mg/dl Est Cr Clr Drug Dosing ml/min Est GFR ( Amer) Est GFR (Non-Af Amer) BUN/Creatinine Ratio (10-20) Glucose (70-99) mg/dl Lactate 1.0 (0.4-2.0) mmol/L Calcium (8.5-10.1) mg/dl Magnesium (1.8-2.4) mg/dl Total Bilirubin (0.2-1) mg/dl Direct Bilirubin (0-0.2) mg/dl AST (15-37) U/L ALT (12-78) U/L Alkaline Phosphatase (45-117) U/L Total Protein (6.4-8.2) gm/dl Albumin (3.4-5.0) gm/dl Globulin (2.5-4.0) gm/dl Albumin/Globulin Ratio (0.9-2) TSH (0.300-4.500) uIu/ml Urine Color Dark Yellow Urine Appearance Cloudy A (Clear) Urine pH 5.0 (4.5-7.5) Ur Specific [place] 1.019 (1.000-1.030) Urine Protein Negative (Negative) Urine Glucose (UA) Negative (Negative) Urine Ketones Negative (Negative) Urine Blood Negative (Negative) Urine Nitrite Negative (Negative) Urine Bilirubin Negative (Negative) Urine Urobilinogen Negative (Negative) Ur Leukocyte Esterase 1+ H (Negative) Urine WBC (Auto) 10-30 H (0-5) /hpf Urine RBC (Auto) 0-4 (0-4) /hpf U Hyaline Cast (Auto) 10-30 H (0-5) /lpf U Epithel Cells (Auto) >30 H (0-5) /lpf Urine Bacteria (Auto) Negative (Negative) Ur Renal Epithelial Cell 10-20 H (0-5) /lpf Amorphous Sediment Present A (None Prsent) Urine Mucus Present A (None Prsent) Urine Yeast Not Reportable Hepatitis C Ab Screen (Neg) 05/23/19 Range/Units 12:07 WBC (4.8-10.8) K/uL RBC (4.2-5.4) M/uL Hgb (12.0-16.0) g/dL Hct (37-47) % MCV (80-100) fL MCH (25-34) pg MCHC (32-36) g/dL RDW Std Deviation (36.4-46.3) fL RDW Coeff of Payam (11.5-14.5) % Plt Count (130-400) K/uL MPV (7.4-10.4) fL Immature Gran % (Auto) % Neut % (Auto) % Lymph % (Auto) % Dixie % (Auto) % Eos % (Auto) % Baso % (Auto) % Immature Gran # (Auto) (0.00-0.02) K/uL Neut # (Auto) (1.4-6.5) K/uL Lymph # (Auto) (1.2-3.4) K/uL Dixie # (Auto) (0.11-0.59) K/uL Eos # (Auto) (0-0.5) K/uL Baso # (Auto) (0-0.2) K/uL Absolute Nucleated RBC (0-0) K/uL Nucleated RBC % (auto) % Smudge Cells Blood Smear Review Peripher Smr Path Cons Sodium 131 L (136-145) mmol/L Potassium 3.1 L (3.5-5.1) mmol/L Chloride 97 L (98-107) mmol/L Carbon Dioxide 22 (21-32) mmol/L Anion Gap 12.0 H (3-11) BUN 44 H (7-18) mg/dl Creatinine 2.34 H (0.6-1.2) mg/dl Est Cr Clr Drug Dosing 23.5 ml/min Est GFR ( Amer) 23.7 Est GFR (Non-Af Amer) 20.4 BUN/Creatinine Ratio 18.8 (10-20) Glucose 112 H (70-99) mg/dl Lactate (0.4-2.0) mmol/L Calcium 9.3 (8.5-10.1) mg/dl Magnesium 2.5 H (1.8-2.4) mg/dl Total Bilirubin 0.4 (0.2-1) mg/dl Direct Bilirubin (0-0.2) mg/dl AST 26 (15-37) U/L ALT 32 (12-78) U/L Alkaline Phosphatase 124 H (45-117) U/L Total Protein 8.2 (6.4-8.2) gm/dl Albumin 2.8 L (3.4-5.0) gm/dl Globulin 5.4 H (2.5-4.0) gm/dl Albumin/Globulin Ratio 0.5 L (0.9-2) TSH 0.758 (0.300-4.500) uIu/ml Urine Color Urine Appearance (Clear) Urine pH (4.5-7.5) Ur Specific [place] (1.000-1.030) Urine Protein (Negative) Urine Glucose (UA) (Negative) Urine Ketones (Negative) Urine Blood (Negative) Urine Nitrite (Negative) Urine Bilirubin (Negative) Urine Urobilinogen (Negative) Ur Leukocyte Esterase (Negative) Urine WBC (Auto) (0-5) /hpf Urine RBC (Auto) (0-4) /hpf U Hyaline Cast (Auto) (0-5) /lpf U Epithel Cells (Auto) (0-5) /lpf Urine Bacteria (Auto) (Negative) Ur Renal Epithelial Cell (0-5) /lpf Amorphous Sediment (None Prsent) Urine Mucus (None Prsent) Urine Yeast Hepatitis C Ab Screen (Neg) PG Care Time/CCT Total # of Minutes Spent Total Time Spent with Patient: Total time spent is greater than 50% in coordination of care (as documented) at patient's floor/unit and/or counseling patient: Coding Level of Care Code 18077 Subseq Hosp Care Lvl 3 Diagnoses Ambulatory dysfunction R26.2 JOSH (acute kidney injury) N17.9 GERD (gastroesophageal reflux disease) K21.9 Esophagitis presence: esophagitis presence not specified Hypertension I10 Hypertension type: essential hypertension Leukocytosis D72.829 Leukocytosis type: unspecified CLL (chronic lymphocytic leukemia) C91.10 Depression F33.9 Active/Remission status: remission status unspecified Depression Type: major depressive disorder Major depression recurrence: recurrent Microcytosis R71.8 Anemia D64.9 Hypokalemia E87.6 Hyponatremia E87.1 DVT prophylaxis Z29.9 Colitis K52.9 (1) Depression Active/Remission status: remission status unspecified Depression Type: major depressive disorder Major depression recurrence: recurrent Qualified Code(s): F33.9 - Major depressive disorder, recurrent, unspecified (2) Leukocytosis Leukocytosis type: unspecified Qualified Code(s): D72.829 - Elevated white blood cell count, unspecified (3) GERD (gastroesophageal reflux disease) Esophagitis presence: esophagitis presence not specified Qualified Code(s): K21.9 - Gastro-esophageal reflux disease without esophagitis (4) Hypertension Hypertension type: essential hypertension Qualified Code(s): I10 - Essential (primary) hypertension
[2019-05-24] MEDS: SODIUM CHLORIDE 0.9% 1000ML 1,000 ML IV SCH ×2 (12:21→21:04)
[2019-05-24] MEDS: metroNIDAZOLE 500 MG/100 ML BAG IV SCH (17:42)
[2019-05-24] MEDS: CIPROFLOXACIN 400 MG/200 ML BAG IV SCH (17:42)
[2019-05-25] MEDS: metroNIDAZOLE 500 MG/100 ML BAG IV SCH ×2 (01:59→07:52)
[2019-05-25] MEDS: SODIUM CHLORIDE 0.9% 1000ML 1,000 ML IV SCH ×2 (04:57→11:55)
[2019-05-25] MEDS: HEPARIN SOD 5,000 UNIT/0.5 ML VIAL SQ SCH ×3 (04:58→21:11)
[2019-05-25] MEDS: CIPROFLOXACIN 400 MG/200 ML BAG IV SCH (05:49)
[2019-05-25 06:09] LABS: Hemoglobin 8.7 g/dL (12.0-16.0); Mean Corpuscular Hemoglobin 25.6 pg (25-34); Mean Corpuscular Hgb Conc 31.1 g/dL (32-36); Mean Corpuscular Volume 82.4 fL (80-100); Mean Platelet Volume 8.6 fL (7.4-10.4); Platelet Count 423 K/uL (130-400); RDW Coefficient of Variation 16.4 % (11.5-14.5); RDW Standard Deviation 49.5 fL (36.4-46.3); White Blood Count 14.49 K/uL (4.8-10.8)
[2019-05-25 06:33] LABS: Albumin Level 2.1 gm/dl (3.4-5.0); BUN Creatinine Ratio 25.2 (10-20); Calcium 8.8 mg/dl (8.5-10.1); Creatinine Clr Calc Pharmacy 41.6 ml/min; Est GFR (African American) 47.3; Est GFR (Non-African American) 40.8; Potassium 3.8 mmol/L (3.5-5.1)
[2019-05-25 06:38] LABS: Albumin Globulin Ratio 0.5 (0.9-2); Bilirubin,Total 0.3 mg/dl (0.2-1); Ferritin 117.2 ng/ml (8-388); Globulin 4.6 gm/dl (2.5-4.0); Total Protein 6.7 gm/dl (6.4-8.2)
[2019-05-25 07:10] LABS: Basophils # (auto) 0.05 K/uL (0-0.2); Basophils % (auto) 0.3 %; Echinocytes 1+; Eosinophils % (auto) 2.1 %; Immature Granulocytes # (auto) 0.05 K/uL (0.00-0.02); Immature Granulocytes % (auto) 0.3 %; Monocytes # (auto) 0.59 K/uL (0.11-0.59); Monocytes % (auto) 4.1 %; Neutrophils % (auto) 53.2 %
[2019-05-25] MEDS: TRAMADOL HCL 50 MG TABLET PO PRN ×3 (07:52→19:58)
[2019-05-25] MEDS: SERTRALINE HCL 50 MG TABLET PO SCH (07:53)
[2019-05-25] MEDS: PANTOprazole 40 MG TAB PO SCH (07:53)
--- NOTE | 2019-05-25 11:27 | Hospitalist Progress Note ---
Date of Service May 25, 2019 Assessment & Plan (1) Ambulatory dysfunction: 68-year-old female presenting with ambulatory dysfunction, groin pain and weakness. Etiology unclear, patient with a small nondisplaced medial right symphysis pubis fracture on x-ray which could be contributing to her discomfort. Additionally, patient with multiple electrolyte abnormalities (resolved) and evidence of acute dehydration, which could contribute to overall weakness, possible infection. * PT/OT evaluation and treat -- please continue to see while inpatient --> recommendations for inpatient rehab at discharge * Pain control with tylenol and tramadol 50mg Q4 prn * TSH wnl at 0.758 * Continue IVF for dehydration -- decrease rate to 60ml/hr as patient with increased oral intake, but still dry on exam * Procalcitonin 3.16. * BCx without growth from 05/23. * CT A/P on 05/24 for LLQ pain on exam -- possible nonspecific colitis of proximal/mid sigmoid colon. Liver/spleen unremarkable. 2.5cm benign left adrenal adenoma. * IV Cipro/Flagyl -- transitioned to Unasyn to cover for both abdominal process and UTI with group B strep -- could transition to augmentin prior to discharge (2) UTI (urinary tract infection): * See above (3) JOSH (acute kidney injury): * Cr elevated to 2.34 on admission. Unclear baseline. Likely in setting of acute dehydration. Also, UA with 1+ leuk est, 10-30WBC, 10-30 hyaline cast, >30 epi, 10-20 renal epithelial cells, +amorphous sediment. Likely ATN * Urine culture with pin-point growth, re-incubated --> group B strep >100,000 CFU -- abx switched to unasyn as above * Avoid nephrotoxic agents/renally dose when available * Cr improved to 1.32 * Urine studies ordered -- Urine Osm low at 452, urine sodium 83 * Monitor BMP in AM (4) GERD (gastroesophageal reflux disease): * Chronic. Stable * Home omeprazole on hold (non-formulary) -- patient on protonix while inpatient * Monitor for symptoms (5) Hypertension: * HCTZ, enalapril on hold secondary to dehydration, improving -- continue to hold * BP well controlled -- currently 128/76 * Patient may not need both agents, given current BPs -- continue to monitor (6) Leukocytosis: * WBC=25.37k on admission, neutrophils/bands as well as elevated lymphocytes. ?CLL with overlying infection/inflammation * WBC improved to 14.49k currently -- per patient, this is around her baseline (10-16k) -- follows with PCP Dr. Tyson Junior in [place] * BCx without growth (7) CLL (chronic lymphocytic leukemia): * Patient reports history of CLL, currently being followed by her PCP, Dr. Tobar. Reports her baseline WBC count is typically 10-16. WBC is elevated 25.37 on admission, see above. Differential shows neutrophil predominance with some increased immature cells as well as lymphocytes. Smudge cells present as well, expected in CLL.?Infectious/inflammatory response as well as CLL. Given elevation and findings on CT A/p as above -- initiated on cipro/flagyl * Peripheral smear requested --> no blasts identified. No evidence of hemolysis * HIM to obtain PCP outpatient records * Continue to monitor (8) Depression: * Chronic. Stable. * Continue sertraline 50 mg p.o. daily (9) Anemia: * H/h 8.7/28.0 -- 10.3/31.6 on admission -- likely some dilutional effect given IVF, however patient appears to be closer to 14 at baseline after review of records. Low H/h in 2010 following R TKA by Dr. Ambrocio. * Believes last colonoscopy >12 years ago. * Hemoccult ordered * Iron studies ordered -- iron low at 22, TIBC 309, Transferrin 225, Transferrin % Sat low at 7, ferritin 117 -- likely anemia of chronic disease * Will start on iron supplementation, venofer daily while inpatient, then ferrous sulfate 325mg BID at discharge -- monitor for constipation as patient without BM x 2 days * Will need outpatient EGD/Colonscopy in 6 weeks as an outpatient * Monitor CBC in AM (10) Microcytosis: * MCV borderline at 80.8 on 05/24 * See above (11) Hypokalemia: * K 3.1 on admission -- given 60meq x 1 * K continues to be stable -- 3.8 * Continue to monitor (12) Hyponatremia: * Na 131 on admission. IVF as above * Na continues to be stable at 137 * Continue to monitor (13) Colitis: * as above (14) DVT prophylaxis: * Heparin SQ Dispo: possible discharge when bed available, CM following Admission and Anticipated Discharge Date Admission Date: May 23, 2019 Supervising Physician Co-Signing Physician Notes DAIN Supervision Note: I did not personally see or examine the patient today, but I verified all ravi points of DAIN Avery's assessment and plan with the following exceptions/additions: None Subjective Patient states she is feeling "even better today than I did yesterday" and yesterday was an improvement since this onset of her groin pain after lifting her dog. She states she still feels a little dry in her mouth, but that her appetite is much improved from the past several days. She states she does have more pain in the right groin today and denies any abdominal pain at the moment. She does state that she feels a little bloated, but she has not moved her bowels in the past 48 hours. Denies nausea, vomiting, or belching. She states she has this issue at home and does not require OTC stool softeners or laxatives, and that it resolves by itself. Discussed if this persists, she may want to consider miralax. Discussed CT results and continuing antibiotics with possible transition tomorrow to oral agents. Discussed lab findings. Discussed PT/OT recommendations and patient would like SNF at discharge. CM sending referrals. Hopeful for bed in the next day or so. Review of Systems Review of Systems: All systems reviewed & are unremarkable except as noted in HPI & below Constitutional: no fever and no chills Respiratory: no cough and no dyspnea Cardiovascular: no chest pain and no palpitations Gastrointestinal: + bloating and + constipation; no abdominal pain, no belching, no nausea and no vomiting Genitourinary: no dysuria and no urinary frequency Integumentary: no rash and no lesions Physical Exam Constitutional: WD/WN, vitals as above no acute distress general pallor ENMT: dry mm Neck: trachea midline, no thyromegaly Respiratory: normal respiratory effort, lungs clear to auscultation Cardiovascular: Rate/Rhythm: regular rate and regular rhythm Heart Sounds: no murmur and no cardiac rub Extremities: normal capillary refill; no calf tenderness and no edema Gastrointestinal (Abdomen): normal bowel sounds, soft, nontender, no hepatosplenomegaly Musculoskeletal: minimally tender R groin with deep palpation Skin: no rashes, warm and dry Neurologic: PERRL, EOMI, accommodation nl, no face palsy, no dysarthria Psychiatric: A+Ox3, euthymic affect Lymphatic: no cervical or axillary lymphadenopathy Results & Data ([facility]) Vital Signs (Past 12 Hours) Vital Signs Temp Pulse Resp BP Pulse Ox 05/25/19 06:57 36.8 C 76 18 128/76 97 Laboratory Results 05/25/19 05/25/19 05/24/19 Range/Units 05:44 05:44 16:59 WBC 14.49 H (4.8-10.8) K/uL RBC 3.40 L (4.2-5.4) M/uL Hgb 8.7 L (12.0-16.0) g/dL Hct 28.0 L (37-47) % MCV 82.4 (80-100) fL MCH 25.6 (25-34) pg MCHC 31.1 L (32-36) g/dL RDW Std Deviation 49.5 H (36.4-46.3) fL RDW Coeff of Payam 16.4 H (11.5-14.5) % Plt Count 423 H (130-400) K/uL MPV 8.6 (7.4-10.4) fL Immature Gran % (Auto) 0.3 % Neut % (Auto) 53.2 % Lymph % (Auto) 40.0 % Fleming % (Auto) 4.1 % Eos % (Auto) 2.1 % Baso % (Auto) 0.3 % Immature Gran # (Auto) 0.05 H (0.00-0.02) K/uL Neut # (Auto) 7.70 H (1.4-6.5) K/uL Lymph # (Auto) 5.80 H (1.2-3.4) K/uL Fleming # (Auto) 0.59 (0.11-0.59) K/uL Eos # (Auto) 0.30 (0-0.5) K/uL Baso # (Auto) 0.05 (0-0.2) K/uL Echinocytes 1+ Sodium 137 (136-145) mmol/L Potassium 3.8 (3.5-5.1) mmol/L Chloride 110 H (98-107) mmol/L Carbon Dioxide 21 (21-32) mmol/L Anion Gap 6.0 (3-11) BUN 33 H (7-18) mg/dl Creatinine 1.32 H D (0.6-1.2) mg/dl Est Cr Clr Drug Dosing 41.6 ml/min Est GFR ( Amer) 47.3 Est GFR (Non-Af Amer) 40.8 BUN/Creatinine Ratio 25.2 H (10-20) Glucose 104 H (70-99) mg/dl Calcium 8.8 (8.5-10.1) mg/dl Iron 22 L (35-150) mcg/dl TIBC 309 (250-450) mcg/dl Transferrin 225 (200-360) mg/dl Transferrin % Sat 7 L (15-50) % Ferritin 117.2 (8-388) ng/ml Total Bilirubin 0.3 (0.2-1) mg/dl AST 28 (15-37) U/L ALT 43 (12-78) U/L Alkaline Phosphatase 150 H (45-117) U/L Total Protein 6.7 (6.4-8.2) gm/dl Albumin 2.1 L (3.4-5.0) gm/dl Globulin 4.6 H (2.5-4.0) gm/dl Albumin/Globulin Ratio 0.5 L (0.9-2) Procalcitonin (0-0.5) ng/ml Urine Osmolality (500-800) mOsm/kg Ur Random Sodium 83 mmol/L 05/24/19 05/24/19 Range/Units 16:59 05:08 WBC (4.8-10.8) K/uL RBC (4.2-5.4) M/uL Hgb (12.0-16.0) g/dL Hct (37-47) % MCV (80-100) fL MCH (25-34) pg MCHC (32-36) g/dL RDW Std Deviation (36.4-46.3) fL RDW Coeff of Payam (11.5-14.5) % Plt Count (130-400) K/uL MPV (7.4-10.4) fL Immature Gran % (Auto) % Neut % (Auto) % Lymph % (Auto) % Fleming % (Auto) % Eos % (Auto) % Baso % (Auto) % Immature Gran # (Auto) (0.00-0.02) K/uL Neut # (Auto) (1.4-6.5) K/uL Lymph # (Auto) (1.2-3.4) K/uL Fleming # (Auto) (0.11-0.59) K/uL Eos # (Auto) (0-0.5) K/uL Baso # (Auto) (0-0.2) K/uL Echinocytes Sodium (136-145) mmol/L Potassium (3.5-5.1) mmol/L Chloride (98-107) mmol/L Carbon Dioxide (21-32) mmol/L Anion Gap (3-11) BUN (7-18) mg/dl Creatinine (0.6-1.2) mg/dl Est Cr Clr Drug Dosing ml/min Est GFR ( Amer) Est GFR (Non-Af Amer) BUN/Creatinine Ratio (10-20) Glucose (70-99) mg/dl Calcium (8.5-10.1) mg/dl Iron (35-150) mcg/dl TIBC (250-450) mcg/dl Transferrin (200-360) mg/dl Transferrin % Sat (15-50) % Ferritin (8-388) ng/ml Total Bilirubin (0.2-1) mg/dl AST (15-37) U/L ALT (12-78) U/L Alkaline Phosphatase (45-117) U/L Total Protein (6.4-8.2) gm/dl Albumin (3.4-5.0) gm/dl Globulin (2.5-4.0) gm/dl Albumin/Globulin Ratio (0.9-2) Procalcitonin 3.16 H (0-0.5) ng/ml Urine Osmolality 452 L (500-800) mOsm/kg Ur Random Sodium mmol/L PG Care Time/CCT Total # of Minutes Spent Total Time Spent with Patient: Total time spent is greater than 50% in coordination of care (as documented) at patient's floor/unit and/or counseling patient: Coding Level of Care Code 12285 Subseq Hosp Care Lvl 3 Diagnoses Ambulatory dysfunction R26.2 UTI (urinary tract infection) N39.0 JOSH (acute kidney injury) N17.9 GERD (gastroesophageal reflux disease) K21.9 Esophagitis presence: esophagitis presence not specified Hypertension I10 Hypertension type: essential hypertension Leukocytosis D72.829 Leukocytosis type: unspecified CLL (chronic lymphocytic leukemia) C91.10 Depression F33.9 Active/Remission status: remission status unspecified Depression Type: major depressive disorder Major depression recurrence: recurrent Anemia D64.9 Microcytosis R71.8 Hypokalemia E87.6 Hyponatremia E87.1 Colitis K52.9 DVT prophylaxis Z29.9 (1) Depression Active/Remission status: remission status unspecified Depression Type: major depressive disorder Major depression recurrence: recurrent Qualified Code(s): F33.9 - Major depressive disorder, recurrent, unspecified (2) Leukocytosis Leukocytosis type: unspecified Qualified Code(s): D72.829 - Elevated white blood cell count, unspecified (3) GERD (gastroesophageal reflux disease) Esophagitis presence: esophagitis presence not specified Qualified Code(s): K21.9 - Gastro-esophageal reflux disease without esophagitis (4) Hypertension Hypertension type: essential hypertension Qualified Code(s): I10 - Essential (primary) hypertension
[2019-05-25] MEDS: AMPICILLIN/SULBACTAM SOD 3,000 MG in 0.9 % SODIUM CHLORIDE 100 ML IV SCH ×2 (15:30→21:18)
[2019-05-25] MEDS: IRON SUCROSE 300 MG in SODIUM CHLORIDE 0.9% 250 ML IV SCH (16:17)
[2019-05-26] MEDS: TRAMADOL HCL 50 MG TABLET PO PRN ×4 (00:19→21:23)
[2019-05-26] MEDS: SODIUM CHLORIDE 0.9% 1000ML 1,000 ML IV SCH ×2 (03:59→21:19)
[2019-05-26] MEDS: AMPICILLIN/SULBACTAM SOD 3,000 MG in 0.9 % SODIUM CHLORIDE 100 ML IV SCH ×4 (03:59→21:24)
[2019-05-26] MEDS: HEPARIN SOD 5,000 UNIT/0.5 ML VIAL SQ SCH ×3 (06:21→21:24)
[2019-05-26] MEDS: PANTOprazole 40 MG TAB PO SCH (08:50)
[2019-05-26] MEDS: SERTRALINE HCL 50 MG TABLET PO SCH (08:50)
[2019-05-26 08:51] LABS: Hemoglobin 8.9 g/dL (12.0-16.0); Mean Corpuscular Hemoglobin 26.1 pg (25-34); Mean Corpuscular Hgb Conc 31.8 g/dL (32-36); Mean Corpuscular Volume 82.1 fL (80-100); Mean Platelet Volume 8.5 fL (7.4-10.4); Platelet Count 512 K/uL (130-400); RDW Coefficient of Variation 16.3 % (11.5-14.5); RDW Standard Deviation 48.8 fL (36.4-46.3); Red Blood Count 3.41 M/uL (4.2-5.4); White Blood Count 16.24 K/uL (4.8-10.8)
[2019-05-26 09:24] LABS: BUN Creatinine Ratio 22.1 (10-20); Calcium 9.3 mg/dl (8.5-10.1); Creatinine Clr Calc Pharmacy 54.4 ml/min; Est GFR (African American) 65.3; Est GFR (Non-African American) 56.4; Potassium 3.7 mmol/L (3.5-5.1)
[2019-05-26] MEDS: IRON SUCROSE 300 MG in SODIUM CHLORIDE 0.9% 250 ML IV SCH (09:28)
[2019-05-26 09:31] LABS: Basophils # (auto) 0.07 K/uL (0-0.2); Basophils % (auto) 0.4 %; Eosinophils # (auto) 0.31 K/uL (0-0.5); Eosinophils % (auto) 1.9 %; Immature Granulocytes # (auto) 0.13 K/uL (0.00-0.02); Immature Granulocytes % (auto) 0.8 %; Lymphocytes # (auto) 7.79 K/uL (1.2-3.4); Microcytosis Present; Monocytes # (auto) 0.68 K/uL (0.11-0.59); Monocytes % (auto) 4.2 %; Neutrophils # (auto) 7.26 K/uL (1.4-6.5); Neutrophils % (auto) 44.7 %; Smudge Cells Present
--- NOTE | 2019-05-26 14:59 | Hospitalist Progress Note ---
Date of Service May 26, 2019 Assessment & Plan (1) Ambulatory dysfunction: 68-year-old female presenting with ambulatory dysfunction, groin pain and weakness. Etiology unclear, patient with a small nondisplaced medial right symphysis pubis fracture on x-ray which could be contributing to her discomfort. Additionally, patient with multiple electrolyte abnormalities (resolved) and evidence of acute dehydration, which could contribute to overall weakness, possible infection. * PT/OT evaluation and treat -- please continue to see while inpatient --> recommendations for inpatient rehab at discharge * Pain control with tylenol and tramadol 50mg Q4 prn * TSH wnl at 0.758 (2) Colitis: * CT A/P on 05/24 for LLQ pain on exam -- possible nonspecific colitis of proximal/mid sigmoid colon. Liver/spleen unremarkable. 2.5cm benign left adr enal adenoma. * IV Cipro/Flagyl -- transitioned to Unasyn to cover for both abdominal process and UTI with group B strep -- could transition to augmentin prior to discharge * should have colonoscopy in 6 weeks for follow up for colitis and for anemia (3) JOSH (acute kidney injury): * Cr elevated to 2.34 on admission. Unclear baseline. Likely in setting of acute dehydration. Also, UA with 1+ leuk est, 10-30WBC, 10-30 hyaline cast, >30 epi, 10-20 renal epithelial cells, +amorphous sediment. Likely ATN * * Avoid nephrotoxic agents/renally dose when available * Cr back to baseline, 1.01 * Urine studies ordered -- Urine Osm low at 452, urine sodium 83 * Monitor BMP in AM * holding enalapril and HCTZ (4) UTI (urinary tract infection): * See above * Initially given IVF -- discontinued as above * Urine culture with pin-point growth, re-incubated --> group B strep >100,000 CFU -- abx switched to unasyn as above --> will transition to Augmentin in AM. Treatment for 3 more days, to be completed on * Procalcitonin 3.16 --> repeat at 0.72 * BCx without growth from 05/23. (5) GERD (gastroesophageal reflux disease): * Chronic. Stable * Home omeprazole on hold (non-formulary) -- patient on protonix while inpatient * Monitor for symptoms (6) Hypertension: * HCTZ, enalapril on hold secondary to dehydration, improving -- continue to hold * BP well controlled -- currently 117/65 * Will resume HCTZ given swelling to LE, dc IVFs * Patient may not need both agents, given current BPs -- continue to monitor (7) Leukocytosis: * WBC=25.37k on admission, neutrophils/bands as well as elevated lymphocytes. CLL with overlying infection/inflammation * WBC stable at 16K -- per patient, this is around her baseline (10-16k) -- follows with PCP Dr. Tyson Junior in [place] * BCx without growth (8) CLL (chronic lymphocytic leukemia): * Patient reports history of CLL, currently being followed by her PCP, Dr. Tobar. Reports her baseline WBC count is typically 10-16. WBC is elevated 25.37 on admission, see above. Differential shows neutrophil predominance with some increased immature cells as well as lymphocytes. Smudge cells present as well, expected in CLL.?Infectious/inflammatory response as well as CLL. Given elevation and findings on CT A/p as above -- initiated on cipro/flagyl and then transitioned to Unasyn * Peripheral smear requested --> no blasts identified. No evidence of hemolysis * HIM to obtain PCP outpatient records * Continue to monitor (9) Depression: * Chronic. Stable. * Continue sertraline 50 mg p.o. daily (10) Anemia: * H/h 8.7/28.0 -- 10.3/31.6 on admission -- likely some dilutional effect given IVF, however patient appears to be closer to 14 at baseline after review of records. Low H/h in 2010 following R TKA by Dr. Ambrocio. * Believes last colonoscopy >12 years ago. * Hemoccult ordered * Iron studies ordered -- iron low at 22, TIBC 309, Transferrin 225, Transferrin % Sat low at 7, ferritin 117 -- likely anemia of chronic disease * Continue venofer daily while inpatient, then ferrous sulfate 325mg BID at discharge * Will need outpatient EGD/Colonscopy in 6 weeks as an outpatient * Monitor CBC in AM (11) Microcytosis: * MCV borderline at 80.8 on 05/24 * See above (12) Hypokalemia: * RESOLVED * K 3.1 on admission -- given 60meq x 1 * K continues to be stable -- 3.7 * Continue to monitor (13) Hyponatremia: * RESOLVED, secondary to dehydration * Na 131 on admission. IVF as above * Na continues to be stable at 139 * Continue to monitor (14) DVT prophylaxis: * Heparin SQ Dispo: possible discharge when bed available, CM following. Patient denies SNF. Will discuss with patient in AM for outpatient PT vs [id number] for SNF Admission and Anticipated Discharge Date Admission Date: May 23, 2019 Supervising Physician Co-Signing Physician Notes PA Supervision Note: I did not personally see or examine the patient today, but I verified all ravi points of DAIN Avery's assessment and plan with the following exceptions/additions: None Subjective Patient feeling much better. Increased appetite. Minimal pain, controlled with tramadol. Discussed switching to augmentin tomorrow and following up with GI in 6 weeks for EGD/colonoscopy. Patient denies fevers, chest pain, shortness of breath, abdominal pain, n/v/d. Will continue IV venofer again tomorrow and patient agreeable to continue PO supplementation. Discussed waiting for repeat labs to make sure infection/inflammation decrreasing and patient hopeful for discharge to [facility]. Review of Systems Review of Systems: All systems reviewed & are unremarkable except as noted in HPI & below Physical Exam Constitutional: WD/WN, vitals as above + obese; no acute distress Eyes: + anicteric sclerae and PERRL Neck: trachea midline, no thyromegaly Respiratory: normal respiratory effort, lungs clear to auscultation Cardiovascular: Rate/Rhythm: regular rate and regular rhythm Heart Sounds: no murmur and no cardiac rub Extremities: normal capillary refill; no calf tenderness and no edema Gastrointestinal (Abdomen): normal bowel sounds, soft, nontender, no hepatosplenomegaly Musculoskeletal: no cyanosis or clubbing, extremities motor strength 5/5 minimally tender R groin Skin: no rashes, warm and dry Neurologic: PERRL, EOMI, accommodation nl, no face palsy, no dysarthria Psychiatric: A+Ox3, euthymic affect Lymphatic: no cervical or axillary lymphadenopathy Results & Data ([facility]) Vital Signs (Past 12 Hours) Vital Signs Temp Pulse Resp BP Pulse Ox 05/26/19 07:40 37.1 C 80 20 126/72 93 Laboratory Results 05/26/19 05/26/19 05/26/19 Range/Units 10:08 08:22 08:22 WBC 16.24 H (4.8-10.8) K/uL RBC 3.41 L (4.2-5.4) M/uL Hgb 8.9 L (12.0-16.0) g/dL Hct 28.0 L (37-47) % MCV 82.1 (80-100) fL MCH 26.1 (25-34) pg MCHC 31.8 L (32-36) g/dL RDW Std Deviation 48.8 H (36.4-46.3) fL RDW Coeff of Payam 16.3 H (11.5-14.5) % Plt Count 512 H (130-400) K/uL MPV 8.5 (7.4-10.4) fL Immature Gran % (Auto) 0.8 % Neut % (Auto) 44.7 % Lymph % (Auto) 48.0 % [place] % (Auto) 4.2 % Eos % (Auto) 1.9 % Baso % (Auto) 0.4 % Immature Gran # (Auto) 0.13 H (0.00-0.02) K/uL Neut # (Auto) 7.26 H (1.4-6.5) K/uL Lymph # (Auto) 7.79 H (1.2-3.4) K/uL Imperial # (Auto) 0.68 H (0.11-0.59) K/uL Eos # (Auto) 0.31 (0-0.5) K/uL Baso # (Auto) 0.07 (0-0.2) K/uL Smudge Cells Present Microcytosis Present Sodium 139 (136-145) mmol/L Potassium 3.7 (3.5-5.1) mmol/L Chloride 110 H (98-107) mmol/L Carbon Dioxide 21 (21-32) mmol/L Anion Gap 8.0 (3-11) BUN 22 H (7-18) mg/dl Creatinine 1.01 (0.6-1.2) mg/dl Est Cr Clr Drug Dosing 54.4 ml/min Est GFR ( Amer) 65.3 Est GFR (Non-Af Amer) 56.4 BUN/Creatinine Ratio 22.1 H (10-20) Glucose 103 H (70-99) mg/dl Calcium 9.3 (8.5-10.1) mg/dl Procalcitonin 0.72 H (0-0.5) ng/ml PG Care Time/CCT Total # of Minutes Spent Total Time Spent with Patient: Total time spent is greater than 50% in coordination of care (as documented) at patient's floor/unit and/or counseling patient: Coding Level of Care Code 15900 Subseq Hosp Care Lvl 3 Diagnoses Ambulatory dysfunction R26.2 Colitis K52.9 JOSH (acute kidney injury) N17.9 UTI (urinary tract infection) N39.0 GERD (gastroesophageal reflux disease) K21.9 Esophagitis presence: esophagitis presence not specified Hypertension I10 Hypertension type: essential hypertension Leukocytosis D72.829 Leukocytosis type: unspecified CLL (chronic lymphocytic leukemia) C91.10 Depression F33.9 Active/Remission status: remission status unspecified Depression Type: major depressive disorder Major depression recurrence: recurrent Anemia D64.9 Microcytosis R71.8 Hypokalemia E87.6 Hyponatremia E87.1 DVT prophylaxis Z29.9 (1) Depression Active/Remission status: remission status unspecified Depression Type: major depressive disorder Major depression recurrence: recurrent Qualified Code(s): F33.9 - Major depressive disorder, recurrent, unspecified (2) Leukocytosis Leukocytosis type: unspecified Qualified Code(s): D72.829 - Elevated white blood cell count, unspecified (3) GERD (gastroesophageal reflux disease) Esophagitis presence: esophagitis presence not specified Qualified Code(s): K21.9 - Gastro-esophageal reflux disease without esophagitis (4) Hypertension Hypertension type: essential hypertension Qualified Code(s): I10 - Essential (primary) hypertension
[2019-05-27] MEDS: AMPICILLIN/SULBACTAM SOD 3,000 MG in 0.9 % SODIUM CHLORIDE 100 ML IV SCH (03:50)
[2019-05-27] MEDS: HEPARIN SOD 5,000 UNIT/0.5 ML VIAL SQ SCH ×2 (05:57→13:11)
[2019-05-27 08:15] LABS: Hematocrit (blood only) 28.3 % (37-47); Mean Corpuscular Hemoglobin 26.1 pg (25-34); Mean Corpuscular Hgb Conc 31.8 g/dL (32-36); Mean Platelet Volume 8.3 fL (7.4-10.4); Platelet Count 522 K/uL (130-400); RDW Coefficient of Variation 16.4 % (11.5-14.5); RDW Standard Deviation 49.2 fL (36.4-46.3); Red Blood Count 3.45 M/uL (4.2-5.4); White Blood Count 17.82 K/uL (4.8-10.8)
[2019-05-27 08:52] LABS: BUN Creatinine Ratio 22.3 (10-20); Calcium 9.4 mg/dl (8.5-10.1); Creatinine Clr Calc Pharmacy 61.8 ml/min; Est GFR (African American) 76.1; Est GFR (Non-African American) 65.7; Potassium 3.8 mmol/L (3.5-5.1)
[2019-05-27] MEDS: SERTRALINE HCL 50 MG TABLET PO SCH (08:55)
[2019-05-27] MEDS: PANTOprazole 40 MG TAB PO SCH (08:55)
[2019-05-27] MEDS ORDERED: hydroCHLOROthiazide 25 MG TAB PO SCH (09:00)
[2019-05-27] MEDS ORDERED: AMOXICILLIN/CLAVULANATE 875 MG TAB PO SCH (09:00)
[2019-05-27 09:20] LABS: Basophils # (auto) 0.09 K/uL (0-0.2); Basophils % (auto) 0.5 %; Eosinophils # (auto) 0.41 K/uL (0-0.5); Eosinophils % (auto) 2.3 %; Immature Granulocytes # (auto) 0.23 K/uL (0.00-0.02); Immature Granulocytes % (auto) 1.3 %; Lymphocytes # (auto) 7.93 K/uL (1.2-3.4); Lymphocytes % (auto) 44.5 %; Monocytes # (auto) 0.82 K/uL (0.11-0.59); Monocytes % (auto) 4.6 %; Neutrophils # (auto) 8.34 K/uL (1.4-6.5); Neutrophils % (auto) 46.8 %; Smudge Cells Present
[2019-05-27] MEDS: TRAMADOL HCL 50 MG TABLET PO PRN ×2 (09:21→14:44)
--- NOTE | 2019-05-27 12:38 | Discharge Summary ---
Date of Service May 27, 2019 Admission HPI Per Admitting Provider Marilyn Gutierrez is a pleasant 5-year-old female with history of CLL and hypertension presenting from home with ambulatory dysfunction. She reports that a couple of weeks ago she was lifting her dog onto the bed and she feels that she may have pulled a muscle in her groin. Since then she has been ambulating with a walker. On 05/19/2019 her pain became more severe. Patient was unable to go to work due to pain and difficulty with ambulation. She required 2 people to get her up off of a chair. She was seen in the ER at [facility] and was given pain medication and Flexeril which she has been taken with minimal improvement in symptoms. Prior to this event, patient was working at a [employer] in [place] and was on her feet 8-10 hours per day without difficulty. She denies fever/chills/chest pain/palpitations/shortness of breath/abdominal pain/nausea/vomiting/diarrhea/constipation. No additional complaints at this time ER course: Tylenol, morphine, normal saline Admission Exam Per Admitting Provider Physical Exam: General: patient resting comfortably, NAD, non-toxic in appearance, AA&O x 4 Skin: warm, dry, intact, no rashes or lesions HEENT: NC/AT, PERRL, EOMI, anicteric sclera, conjunctiva without injection, external ear normal to inspection and nontender, nares patent, dry mucus membranes, dentition intact, no oropharyngeal lesions, neck supple, trachea midline, no LAD, no thyromegaly, no JVD Heart: +S1/S2, regular, no m/r/g Lungs: equal air entry bilaterally, no rales/rhonchi/wheezes Abd: +BS, soft, NT/ND, no masses/organomegaly/ascites Ext: warm, 2+ pulses in UE/LE bilaterally, no clubbing/cyanosis or edema, tenderness with palpation of left knee, no swelling/erythema Neuro: nonfocal, patient AA&O x 4, speech intact, no facial droop, moving all extremities on command with equal strength 5/5 Principal Diagnosis Pubic Symphysis Fracture, Colitis, UTI Discharge Exam Constitutional WD/WN, vitals as above + obese; no acute distress Eyes + anicteric sclerae and PERRL Neck trachea midline, no thyromegaly Respiratory normal respiratory effort, lungs clear to auscultation Cardiovascular Rate/Rhythm: regular rate and regular rhythm Heart Sounds: no murmur and no cardiac rub Extremities: normal capillary refill; no edema Gastrointestinal (Abdomen) normal bowel sounds, soft, nontender, no hepatosplenomegaly Musculoskeletal Head/Neck/Chest: head atraumatic and neck supple strength 5/5 throughout slowed gait with walker minimally tender to palpation right groin Skin no rashes, warm and dry Neurologic PERRL, EOMI, accommodation nl, no face palsy, no dysarthria Psychiatric A+Ox3, euthymic affect Lymphatic no cervical or axillary lymphadenopathy Discharge Data Allergies Allergy/AdvReac Type Severity Reaction Status Date / Time naproxen Allergy Intermediate RASH - Verified 05/23/19 11:43 TOLERATES MOBIC Sulfa (Sulfonamide Allergy Intermediate RASH Verified 05/23/19 11:43 Antibiotics) Consultations 05/23/19 14:53 ED Decision to Admit Stat Ordered Studies 05/23/19 12:53 CT abd pelvis wo con Stat Hip/Pelvis Xray Hospital Course (1) Ambulatory dysfunction: 68-year-old female presenting with ambulatory dysfunction, groin pain and weakness. Etiology unclear, patient with a small nondisplaced medial right symphysis pubis fracture on x-ray, contributing to her discomfort. Additionally, patient with multiple electrolyte abnormalities (resolved) and evidence of acute dehydration, which could contribute to overall weakness -- patient continued to feel weak despite resolution of infection. Improvement with continued PT with recommendations for inpatient rehab. Peer to peer was completed with Dr. Hernández. Patient accepted to [facility] for acute inpatient rehab Pain control with tramadol, tyelnol Patient discharged to [facility] (2) Colitis: * CT A/P on 05/24 for LLQ pain on exam -- possible nonspecific colitis of proximal/mid sigmoid colon. Liver/spleen unremarkable. 2.5cm benign left adrenal adenoma. * IV Cipro/Flagyl transitioned to Unasyn to cover for both colitis and UTI with GBS. Transitioned to Augmentin 875mg BID morning of 05/27 -- patient to continue treatment for 3 more days, to be completed on . * Recommended colonoscopy in 6 weeks for follow up for colitis and for anemia (3) JOSH (acute kidney injury): * RESOLVED --- Cr back to baseline ~1.01 * Cr elevated to 2.34 on admission. Unclear baseline. Likely in setting of acute dehydration. Also, UA with 1+ leuk est, 10-30WBC, 10-30 hyaline cast, >30 epi, 10-20 renal epithelial cells, +amorphous sediment. Likely ATN * Avoid nephrotoxic agents/renally dose when available * Urine studies ordered -- Urine Osm low at 452, urine sodium 83 * Monitor BMP in AM * HCTZ resumed. Enalapril conitnued to be held for BP 98/48. (4) UTI (urinary tract infection): * See above * Urine culture with group B strep >100,000 CFU -- abx switched to unasyn as above --> transitioned to Augmentin 875mg BID morning of 05/27 -- patient to continue treatment for 3 more days, to be completed on . * Procalcitonin 3.16 --> repeat at 0.72 * BCx NGTD (5) GERD (gastroesophageal reflux disease): * Chronic. Stable * Home omeprazole on hold (non-formulary) -- patient on protonix while inpatient * Resumed home medications at [facility] (6) Hypertension: * HCTZ, enalapril on hold secondary to dehydration * HCTZ resumed given resolution of dehydration and JOSH. Reoslution of increased swelling evening 05/26 * Called Meghann with instructions to have patient continue to hold enalapril given low BP and well controlled BP throughout admission (7) Leukocytosis: * WBC=25.37k on admission, neutrophils/bands as well as elevated lymph ocytes. CLL with overlying infection/inflammation * WBC 17.8K -- per patient, only slightly above baseline 10-16k. No fever or evidence of worsening infection -- follows with PCP Dr. Tyson Junior in [place] * BCx without growth * Follow up with Dr. Junior as outpatient (8) CLL (chronic lymphocytic leukemia): * Patient reports history of CLL, currently being followed by her PCP, Dr. Tobar. Reports her baseline WBC count is typically 10-16. WBC is elevated 25.37 on admission, see above. Differential shows neutrophil predominance with some increased immature cells as well as lymphocytes. Smudge cells present as well, expected in CLL.?Infectious/inflammatory response as well as CLL. Given elevation and findings on CT A/p as above -- initiated on cipro/flagyl and then transitioned to Unasyn and eventually augmentin as above * Peripheral smear requested --> no blasts identified. No evidence of hemolysis * Follow up outpatient with PCP (9) Depression: * Chronic. Stable. * Continued sertraline 50 mg p.o. daily (10) Anemia: * H/h 8.7/28.0 -- 10.3/31.6 on admission -- likely some dilutional effect given IVF, however patient appears to be closer to 14 at baseline after review of records. Low H/h in 2010 following R TKA by Dr. Ambrocio. * Believes last colonoscopy >12 years ago. * Hemoccult negative * Iron studies ordered -- iron low at 22, TIBC 309, Transferrin 225, Transferrin % Sat low at 7, ferritin 117 -- likely anemia of chronic disease * Given venofer x 3, then discharged with ferrous sulfate 325mg at discharge * Outpatient EGD/Colonscopy in 6 weeks as an outpatient * H/h stable (11) Microcytosis: * MCV borderline at 80.8 on 05/24 * See above (12) Hypokalemia: * RESOLVED * K 3.1 on admission -- given 60meq x 1 * K continues to be stable -- 3.8 (13) Hyponatremia: * RESOLVED, secondary to dehydration * Na 131 on admission. IVF as above * Na continues to be stable at 139 (14) DVT prophylaxis: * Heparin SQ while inpatient Discharged to [facility] Total Time Total Time Spent Total Time Spent (In Minutes): 60 Discharge Plan Discharge Items Patient Disposition: Transfer [facility] Reason For Visit: AMBULATORY DYSFUNCTION Discharge Diagnosis: Pubic Symphisis Fracture. Colitis. Urinary Tract Infection. Condition on Discharge: Fair Goals: You have been hospitalized for an acute medical problem. During your stay at [facility], we have made an effort to correct the problem that brought you to the hospital while keeping you as comfortable as possible. Medications were used to bring your condition under control and your discharge instructions will include directions for any medications you should take after leaving the hospital. Please make sure you see your Primary Care Provider as part of your follow up plan. Activity: As commented below Activity Comment: increase activity as tolerated per PT at rehab Non-emergency contact: Primary Care Provider Call non-emergency contact if: you have any medication questions, your symptoms worsen and you have a fever Follow-up/Referrals: Seb Yu, [Physician] - (6-8 weeks for EGD/colonoscopy -- Colitis) Tyson Tobar DO [Primary Care Provider] - Diet: Heart Healthy Addtl Attending Provider Instructions: You have been hospitalized for difficulty with walking. While hospitalized, it was found that you have a small fracture, which did not require any surgical intervention. You were evaluated by physical and occupational therapy and recommended short inpatient rehab stay to ensure continued improvement of mobility to get back to your baseline. You have been given a short prescription for tramadol to use as needed for pain. You may take this medication every four hours as needed. You may also want to alternate with tylenol and only use the tramadol for more severe pain. Please make sure to not exceed 3,000mg of acetaminophen (tylenol) in a 24 hour period of time. You were also found to have a urinary tract infection and colitis (inflammation of your bowels). You were treated with IV antibiotics and then transitioned to Augmentin prior to discharge. You have another 5 doses. You should continue Augmentin 875mg by mouth TWICE daily to complete a seven day course. You were also found to be anemic. Iron studies were drawn and you were given three doses of IV iron supplementation. You are to continue oral iron supplementation. A prescription has been sent. Note, that this may cause your stools to be darker and lead to constipation. You may utilize over the counter miralax to assist in relieving constipation if that occurs. You should follow up with Gastroenterology (Dr. Yu) in the next 6-8 weeks to have a colonscopy/EGD to follow up on the colitis. Please hold your enalapril until seen by your primary care provider, as your blood pressure has been well controlled on hydrochlorothiazide alone. Please follow up with your primary care provider in the next 7 days. Please keep all follow up appointments. Please return to the emergency department if you have any worsening pain, fever, or for any other symptoms that are concerning for you. It has been a pleasure being a part of the medical team providing for you. Take care! Pending Studies at Discharge: No Stand-Alone Forms: My [facility] Skilled Items Patient informed of condition?: Yes DNR: No Discharge Level of Care: Acute rehab Communicable Disease: No Discharge Prognosis: Improving Lines: None Urinary Catheter: No Medications and DC Order Prescriptions: New amoxicillin-pot clavulanate [Augmentin] 875-125 mg Tablet 1 tab PO BIDM Qty: 5 RF: 0 tramadol 50 mg Tablet 50 mg PO Q4H PRN (Reason: pain) Qty: 12 RF: 0 Continued hydrochlorothiazide 25 mg tablet 25 mg PO DAILY RF: 0 sertraline 50 mg tablet 50 mg PO DAILY RF: 0 esomeprazole magnesium 20 mg capsule,delayed release(DR/EC) 20 mg PO DAILY RF: 0 Discontinued enalapril maleate 20 mg tablet 20 mg PO DAILY RF: 0 Discharge Orders: Discharge Order (Routine); Ordered 05/27/19 Ordered By: Moni Avery Admission Data Admit Date/Time: 05/23/19 15:30 Attending Provider: Vero Wagner Admit Provider: Micaela Mcdonald Primary Care Provider: Tyson Tobar Other Providers: Micaela Mcdonald Other Interventions: Discharge Summary Assessment (RN) Last Done: 05/27/19 12:41 DC Date/Time DO NOT enter until pt leaves facility: 05/27/19 15:58 Coding Level of Care Code D/C Day Management >30 mins Diagnoses Ambulatory dysfunction R26.2 Colitis K52.9 JOSH (acute kidney injury) N17.9 UTI (urinary tract infection) N39.0 GERD (gastroesophageal reflux disease) K21.9 Esophagitis presence: esophagitis presence not specified Hypertension I10 Hypertension type: essential hypertension Leukocytosis D72.829 Leukocytosis type: unspecified CLL (chronic lymphocytic leukemia) C91.10 Depression F33.9 Active/Remission status: remission status unspecified Depression Type: major depressive disorder Major depression recurrence: recurrent Anemia D64.9 Microcytosis R71.8 Hypokalemia E87.6 Hyponatremia E87.1 DVT prophylaxis Z29.9
[2019-05-27] MEDS ORDERED: IRON SUCROSE 300 MG in SODIUM CHLORIDE 0.9% 250 ML IV ONE (13:00)
== END 2019-05-27 15:58 ==
LOC: ED 10:49 → SUATTDRO 15:30 → 3N 15:30 → INTOOBSV 15:30 → 3N 17:00